=== PATIENT | female | born 1930 | race Caucasian/White ===

== ENCOUNTER 2017-06-26 19:33 | Inpatient (IN) | payer MEDICARE, OTHER ==
[~2017-06-26] VITALS: Ht 167.6 cm; Wt 72.7 kg
[2017-06-26 19:43] VITALS: Ht 167.6 cm; Wt 72.7 kg
--- NOTE | 2017-06-26 19:44 | ERD ---
ER Documentation Chief Complaint Chief Complaint Dislodgment of the G-tube , failure to thrive HPI The patient is an 86-year-old female, presenting to the ER because of this last 1 of the G-tube of unknown time, failure to thrive. 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 Medications Home Meds Reported Medications Rivaroxaban* (Xarelto*) 10 Mg Tablet, 10 MG PO QAM, TAB 06/26/17 Omeprazole* (Omeprazole*) 20 Mg Capsule.dr, 20 MG PO QAM, #30 CAP 06/26/17 Gabapentin* (Neurontin*) 100 Mg Capsule, 100 MG PO TID, #90 CAP 06/26/17 Magaldrate/Simethicone* (Mag-Al Plus Suspension*) 30 Ml Oral.susp, 30 ML PO Q6H Y for UPSET STOMACH, ML 06/26/17 Mirtazapine* (Mirtazapine*) 7.5 Mg Tablet, 7.5 MG PO HS, TAB 06/26/17 Magnesium Hydroxide* (Milk Of Magnesia*) 400 Mg/5 Ml Oral.susp, 30 ML PO QHS, ML 06/26/17 Magnesium Oxide* (Magnesium Oxide*) 400 Mg Tablet, 400 MG PO QHS, TAB 06/26/17 Lisinopril* (Lisinopril*) 5 Mg Tablet, 5 MG PO DAILY, #30 TAB HOLD FOR SBP<110 06/26/17 Levothyroxine Sodium* (Levothyroxine Sodium*) 50 Mcg Tablet, 50 MCG PO BEFORE BREAKFAST, #30 TAB 06/26/17 Folic Acid* (Folic Acid*) 1 Mg Tablet, 1 MG PO DAILY, TAB 06/26/17 Docusate Sodium* (Docusate Sodium*) 100 Mg Capsule, 100 MG PO DAILY, #30 CAP 06/26/17 Divalproex Sodium* (Depakote*) 250 Mg Tablet.dr, 250 MG PO TID, TAB 06/26/17 Cyanocobalamin* (Vitamin B-12*) 1,000 Mcg Tablet.sa, 1000 MCG PO DAILY, TAB 06/26/17 Lorazepam* (Ativan* Intensol) 2 Mg/Ml Soln, 1 MG PO Q6H, #1 BOTTLE 06/26/17 Lorazepam* (Ativan* Intensol) 2 Mg/Ml Soln, 0.5 MG PO Q6H Y for ANXIETY, #1 BOTTLE 06/26/17 Acetaminophen* (Acetaminophen*) 325 Mg Tablet, 650 MG PO Q6H Y for MILD PAIN LEVEL 1-3, #30 TAB 06/26/17 Allergies Allergies: Coded Allergies: ampicillin (Verified Allergy, Unknown, 06/26/17) meropenem (Verified Allergy, Unknown, 06/26/17) Physical Exam Vitals Vital Signs Date Time Temp Pulse Resp B/P Pulse Ox O2 Delivery O2 Flow Rate FiO2 06/26/17 19:43 99.2 100 18 132/61 100 Physical Exam Const: No acute distress.Dehydrated Head: Atraumatic. Eyes: Normal Conjunctiva. ENT: Normal External Ears, Nose and Mouth. Neck: Full range of motion. No meningismus. Resp: Clear to auscultation bilaterally. Cardio: Regular Tachycardic Abd: Soft, non distended, normal bowel sounds, non tender.The stoma has already been closed Skin: No petechiae or rashes. Back: No midline or flank tenderness. Ext: No cyanosis, or edema. Neur: Limited due to her condition Psych: Unable to perform due to her condition Result Diagram: 06/26/17200406/26/172004 Results 24 hrs Laboratory Tests Test 06/26/17 20:05 06/26/17 20:30 White Blood Count 7.010^3/ul Red Blood Count 4.5410^6/ul Hemoglobin 13.8g/dl Hematocrit 43.9% Mean Corpuscular Volume 96.7fl Mean Corpuscular Hemoglobin 30.4pg Mean Corpuscular Hemoglobin Concent 31.4g/dl Red Cell Distribution Width 12.8% Platelet Count 58103^3/UL Mean Platelet Volume 9.9fl Neutrophils % 67.8% Lymphocytes % 27.5% Monocytes % 4.0% Eosinophils % 0.3% Basophils % 0.3% Nucleated Red Blood Cells % 0.0/100WBC Neutrophils # 4.710^3/ul Lymphocytes # 1.910^3/ul Monocytes # 0.310^3/ul Eosinophils # 0.010^3/ul Basophils # 0.010^3/ul Nucleated Red Blood Cells # 0.010^3/ul Prothrombin Time 13.5Sec Prothrombin Time Ratio 1.1 INR International Normalized Ratio 1.03 Activated Partial Thromboplast Time 28.6Sec Sodium Level 155mmol/L Potassium Level 4.2mmol/L Chloride Level 115mmol/L Carbon Dioxide Level 28mmol/L Anion Gap 16 Blood Urea Nitrogen 33mg/dl Creatinine 0.79mg/dl Glucose Level 133mg/dl Lactic Acid Level 1.9mmol/L Calcium Level 10.6mg/dl Total Bilirubin 0.2mg/dl Direct Bilirubin 0.00mg/dl Indirect Bilirubin 0.2mg/dl Aspartate Amino Transf (AST/SGOT) 20IU/L Alanine Aminotransferase (ALT/SGPT) 23IU/L Alkaline Phosphatase 97IU/L Total Protein 7.3g/dl Albumin 3.7g/dl Globulin 3.60g/dl Albumin/Globulin Ratio 1.02 Urine Color ARYA Urine Clarity SLIGHTLY CLOUDY Urine pH 5.0 Urine Specific [place] 1.029 Urine Ketones 2+mg/dL Urine Nitrite NEGATIVEmg/dL Urine Bilirubin 1+mg/dL Urine Urobilinogen 2+mg/dL Urine Leukocyte Esterase 2+Delta/ul Urine Microscopic RBC 6/HPF Urine Microscopic WBC 178/HPF Urine Squamous Epithelial Cells FEW/HPF Urine Bacteria FEW/HPF Urine Mucus MANY/HPF Urine Hemoglobin NEGATIVEmg/dL Urine Glucose NEGATIVEmg/dL Urine Total Protein 1+mg/dl Current Medications Medications (Trade) Dose Ordered Sig/Maria M Route PRN Reason Start Time Stop Time Status Last Admin Dose Admin Lorazepam 0.5 mg 0.5 mg ONCE ONCE IV 06/26/17 20:30 06/26/17 20:31 DC 06/26/17 20:43 Sodium Chloride 2,170 ml @ 2,170 mls/hr BOLUS X1 ONCE IV 06/26/17 21:30 06/26/17 22:29 DC 06/26/17 21:46 Vancomycin HCl 250 ml @ 125 mls/hr ONCE IVPB 06/26/17 21:30 06/26/17 23:29 06/26/17 22:18 Cefepime HCl (Maxipime 1gm/50 ml (Pmx)) 50 ml @ 100 mls/hr ONCE ONCE IVPB 06/26/17 21:30 06/26/17 21:59 DC 06/26/17 21:46 Procedures/MDM [place] [id number] [place] [id number] Radiology Main Line: [phone] DIAGNOSTIC IMAGING REPORT Patient: GLADYS CARBAJAL : 1930 Age: 86 Sex: F MR #: [id number] DOS: 06/26/171953 Ordering MD: HOLLIS PAULSON MD Location: E/R Room/Bed: PROCEDURE: XR Chest. CLINICAL INDICATION: Sepsis. TECHNIQUE: Single frontal view. COMPARISON: None. FINDINGS: There is mild air space disease at the left lung base medially consistent with pneumonia. The lungs are otherwise clear. The heart is mildly enlarged. There is calcification in the aorta consistent with atherosclerosis. There is no pleural effusion. There is no pneumothorax. IMPRESSION: 1. Mild left basilar pneumonia. 2. Cardiomegaly. 3. Atherosclerosis. 4. Otherwise unremarkable chest radiograph. RPTAT: QQ .Ton Dawkins MD, MD Date Time Electronically viewed and signed by .Ton Dawkins MD, MD on 06/26/2017 21:21 .R/ CC: HOLLIS PAULSON MD MEDICAL MAKING DECISION: The patient is a 86-year-old female, presenting with acute displacement of the G-tube, acute pneumonia, acute dehydration, acute hyponatremia, acute cystitis. She was treated with Ativan 0.5 mg IV 2, normosaline 30 mL/kg IV, vancomycin IV, cefepime IV for acute pneumonia for acute agitation with good response The differential diagnoses considered include but are not limited to cholelithiasis, cholecystitis, cystitis, pancreatitis, hepatitis, gastritis, peptic ulcer disease, gastric ulcer, appendicitis, diverticulitis, cholangitis, choledocholithiasis, partial small bowel obstruction. Departure Diagnosis: Primary Impression: Pneumonia Additional Impressions: Dehydration Hypernatremia UTI (urinary tract infection) Dislodged gastrostomy tube Condition: Stable Comments I discussed the findings with the patient. I discussed the patient with her physician Dr. Holt who was made aware of the lab, the treatment, the patient condition. She has treated with the patient to Dr. Barros. I discussed the patient with his physician Dr. Barros who was made aware of the lab, the treatment, the patient condition. The patient is admitted to [facility] Disclaimer: Inadvertent spelling and grammatical errors are likely due to EHR/ dictation software use and do not reflect on the overall quality of patient care. Also, please note that the electronic time recorded on this note does not necessarily reflect the actual time of the patient encounter. HOLLIS PAULSON MD Jun 26, 2017 19:44
--- NOTE | 2017-06-26 19:44 | ERD ---
ER Documentation Chief Complaint Chief Complaint Dislodgment of the G-tube , failure to thrive HPI The patient is an 86-year-old female, presenting to the ER because of this last 1 of the G-tube of unknown time, failure to thrive. 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 Medications Home Meds Reported Medications Rivaroxaban* (Xarelto*) 10 Mg Tablet, 10 MG PO QAM, TAB 06/26/17 Omeprazole* (Omeprazole*) 20 Mg Capsule.dr, 20 MG PO QAM, #30 CAP 06/26/17 Gabapentin* (Neurontin*) 100 Mg Capsule, 100 MG PO TID, #90 CAP 06/26/17 Magaldrate/Simethicone* (Mag-Al Plus Suspension*) 30 Ml Oral.susp, 30 ML PO Q6H Y for UPSET STOMACH, ML 06/26/17 Mirtazapine* (Mirtazapine*) 7.5 Mg Tablet, 7.5 MG PO HS, TAB 06/26/17 Magnesium Hydroxide* (Milk Of Magnesia*) 400 Mg/5 Ml Oral.susp, 30 ML PO QHS, ML 06/26/17 Magnesium Oxide* (Magnesium Oxide*) 400 Mg Tablet, 400 MG PO QHS, TAB 06/26/17 Lisinopril* (Lisinopril*) 5 Mg Tablet, 5 MG PO DAILY, #30 TAB HOLD FOR SBP<110 06/26/17 Levothyroxine Sodium* (Levothyroxine Sodium*) 50 Mcg Tablet, 50 MCG PO BEFORE BREAKFAST, #30 TAB 06/26/17 Folic Acid* (Folic Acid*) 1 Mg Tablet, 1 MG PO DAILY, TAB 06/26/17 Docusate Sodium* (Docusate Sodium*) 100 Mg Capsule, 100 MG PO DAILY, #30 CAP 06/26/17 Divalproex Sodium* (Depakote*) 250 Mg Tablet.dr, 250 MG PO TID, TAB 06/26/17 Cyanocobalamin* (Vitamin B-12*) 1,000 Mcg Tablet.sa, 1000 MCG PO DAILY, TAB 06/26/17 Lorazepam* (Ativan* Intensol) 2 Mg/Ml Soln, 1 MG PO Q6H, #1 BOTTLE 06/26/17 Lorazepam* (Ativan* Intensol) 2 Mg/Ml Soln, 0.5 MG PO Q6H Y for ANXIETY, #1 BOTTLE 06/26/17 Acetaminophen* (Acetaminophen*) 325 Mg Tablet, 650 MG PO Q6H Y for MILD PAIN LEVEL 1-3, #30 TAB 06/26/17 Allergies Allergies: Coded Allergies: ampicillin (Verified Allergy, Unknown, 06/26/17) meropenem (Verified Allergy, Unknown, 06/26/17) Physical Exam Vitals Vital Signs Date Time Temp Pulse Resp B/P Pulse Ox O2 Delivery O2 Flow Rate FiO2 06/26/17 19:43 99.2 100 18 132/61 100 Physical Exam Const: No acute distress.Dehydrated Head: Atraumatic. Eyes: Normal Conjunctiva. ENT: Normal External Ears, Nose and Mouth. Neck: Full range of motion. No meningismus. Resp: Clear to auscultation bilaterally. Cardio: Regular Tachycardic Abd: Soft, non distended, normal bowel sounds, non tender.The stoma has already been closed Skin: No petechiae or rashes. Back: No midline or flank tenderness. Ext: No cyanosis, or edema. Neur: Limited due to her condition Psych: Unable to perform due to her condition Result Diagram: 06/26/17200406/26/172004 Results 24 hrs Laboratory Tests Test 06/26/17 20:05 06/26/17 20:30 White Blood Count 7.010^3/ul Red Blood Count 4.5410^6/ul Hemoglobin 13.8g/dl Hematocrit 43.9% Mean Corpuscular Volume 96.7fl Mean Corpuscular Hemoglobin 30.4pg Mean Corpuscular Hemoglobin Concent 31.4g/dl Red Cell Distribution Width 12.8% Platelet Count 33585^3/UL Mean Platelet Volume 9.9fl Neutrophils % 67.8% Lymphocytes % 27.5% Monocytes % 4.0% Eosinophils % 0.3% Basophils % 0.3% Nucleated Red Blood Cells % 0.0/100WBC Neutrophils # 4.710^3/ul Lymphocytes # 1.910^3/ul Monocytes # 0.310^3/ul Eosinophils # 0.010^3/ul Basophils # 0.010^3/ul Nucleated Red Blood Cells # 0.010^3/ul Prothrombin Time 13.5Sec Prothrombin Time Ratio 1.1 INR International Normalized Ratio 1.03 Activated Partial Thromboplast Time 28.6Sec Sodium Level 155mmol/L Potassium Level 4.2mmol/L Chloride Level 115mmol/L Carbon Dioxide Level 28mmol/L Anion Gap 16 Blood Urea Nitrogen 33mg/dl Creatinine 0.79mg/dl Glucose Level 133mg/dl Lactic Acid Level 1.9mmol/L Calcium Level 10.6mg/dl Total Bilirubin 0.2mg/dl Direct Bilirubin 0.00mg/dl Indirect Bilirubin 0.2mg/dl Aspartate Amino Transf (AST/SGOT) 20IU/L Alanine Aminotransferase (ALT/SGPT) 23IU/L Alkaline Phosphatase 97IU/L Total Protein 7.3g/dl Albumin 3.7g/dl Globulin 3.60g/dl Albumin/Globulin Ratio 1.02 Urine Color ARYA Urine Clarity SLIGHTLY CLOUDY Urine pH 5.0 Urine Specific [place] 1.029 Urine Ketones 2+mg/dL Urine Nitrite NEGATIVEmg/dL Urine Bilirubin 1+mg/dL Urine Urobilinogen 2+mg/dL Urine Leukocyte Esterase 2+Delta/ul Urine Microscopic RBC 6/HPF Urine Microscopic WBC 178/HPF Urine Squamous Epithelial Cells FEW/HPF Urine Bacteria FEW/HPF Urine Mucus MANY/HPF Urine Hemoglobin NEGATIVEmg/dL Urine Glucose NEGATIVEmg/dL Urine Total Protein 1+mg/dl Current Medications Medications (Trade) Dose Ordered Sig/Maria M Route PRN Reason Start Time Stop Time Status Last Admin Dose Admin Lorazepam 0.5 mg 0.5 mg ONCE ONCE IV 06/26/17 20:30 06/26/17 20:31 DC 06/26/17 20:43 Sodium Chloride 2,170 ml @ 2,170 mls/hr BOLUS X1 ONCE IV 06/26/17 21:30 06/26/17 22:29 DC 06/26/17 21:46 Vancomycin HCl 250 ml @ 125 mls/hr ONCE IVPB 06/26/17 21:30 06/26/17 23:29 06/26/17 22:18 Cefepime HCl (Maxipime 1gm/50 ml (Pmx)) 50 ml @ 100 mls/hr ONCE ONCE IVPB 06/26/17 21:30 06/26/17 21:59 DC 06/26/17 21:46 Procedures/MDM [place] [id number] [place] [id number] Radiology Main Line: [phone] DIAGNOSTIC IMAGING REPORT Patient: GLADYS CARBAJAL : 1930 Age: 86 Sex: F MR #: [id number] DOS: 06/26/171953 Ordering MD: HOLLIS PAULSON MD Location: E/R Room/Bed: PROCEDURE: XR Chest. CLINICAL INDICATION: Sepsis. TECHNIQUE: Single frontal view. COMPARISON: None. FINDINGS: There is mild air space disease at the left lung base medially consistent with pneumonia. The lungs are otherwise clear. The heart is mildly enlarged. There is calcification in the aorta consistent with atherosclerosis. There is no pleural effusion. There is no pneumothorax. IMPRESSION: 1. Mild left basilar pneumonia. 2. Cardiomegaly. 3. Atherosclerosis. 4. Otherwise unremarkable chest radiograph. RPTAT: QQ .Ton Dawkins MD, MD Date Time Electronically viewed and signed by .Ton Dawkins MD, MD on 06/26/2017 21:21 .R/ CC: HOLLIS APULSON MD MEDICAL MAKING DECISION: The patient is a 86-year-old female, presenting with acute displacement of the G-tube, acute pneumonia, acute dehydration, acute hyponatremia, acute cystitis. She was treated with Ativan 0.5 mg IV 2, normosaline 30 mL/kg IV, vancomycin IV, cefepime IV for acute pneumonia for acute agitation with good response The differential diagnoses considered include but are not limited to cholelithiasis, cholecystitis, cystitis, pancreatitis, hepatitis, gastritis, peptic ulcer disease, gastric ulcer, appendicitis, diverticulitis, cholangitis, choledocholithiasis, partial small bowel obstruction. Departure Diagnosis: Primary Impression: Pneumonia Additional Impressions: Dehydration Hypernatremia UTI (urinary tract infection) Dislodged gastrostomy tube Condition: Stable Comments I discussed the findings with the patient. I discussed the patient with her physician Dr. Holt who was made aware of the lab, the treatment, the patient condition. She has treated with the patient to Dr. Barros. I discussed the patient with his physician Dr. Barros who was made aware of the lab, the treatment, the patient condition. The patient is admitted to [facility] Disclaimer: Inadvertent spelling and grammatical errors are likely due to EHR/ dictation software use and do not reflect on the overall quality of patient care. Also, please note that the electronic time recorded on this note does not necessarily reflect the actual time of the patient encounter. HOLLIS PAULSON MD Jun 26, 2017 19:44
[2017-06-26] MEDS ORDERED: LORAZEPAM 2 MG INJ IV ONE ×2 (20:30→22:00)
[2017-06-26] MEDS ORDERED: ACET325T45 PO (20:41)
[2017-06-26] MEDS ORDERED: CYAN100080 PO (20:43)
[2017-06-26] MEDS ORDERED: ATILIQ PO (20:43)
[2017-06-26] MEDS ORDERED: DIVA250T60 PO (20:44)
[2017-06-26] MEDS ORDERED: DOCU-159 PO (20:44)
[2017-06-26] MEDS ORDERED: FOLI-49 PO (20:45)
[2017-06-26] MEDS ORDERED: LEVO50TA74 PO (20:45)
[2017-06-26] MEDS ORDERED: MAGN400T28 PO (20:46)
[2017-06-26] MEDS ORDERED: LISI-313 PO (20:46)
[2017-06-26] MEDS ORDERED: MAGN400O4 PO (20:47)
[2017-06-26] MEDS ORDERED: MIRT7.5T8 PO (20:47)
[2017-06-26] MEDS ORDERED: GABA100C PO (20:49)
[2017-06-26] MEDS ORDERED: UDMYL PO (20:49)
[2017-06-26] MEDS ORDERED: OMEP20CA16 PO (20:50)
[2017-06-26] MEDS ORDERED: RIVA10TA PO (20:51)
--- NOTE | 2017-06-26 21:21 | RADRPT ---
PROCEDURE: XR Chest. CLINICAL INDICATION: Sepsis. TECHNIQUE: Single frontal view. COMPARISON: None. FINDINGS: There is mild air space disease at the left lung base medially consistent with pneumonia. The lungs are otherwise clear. The heart is mildly enlarged. There is calcification in the aorta consistent with atherosclerosis. There is no pleural effusion. There is no pneumothorax. IMPRESSION: 1. Mild left basilar pneumonia. 2. Cardiomegaly. 3. Atherosclerosis. 4. Otherwise unremarkable chest radiograph. RPTAT: QQ .Ton Dawkins MD, MD Date Time Electronically viewed and signed by .Ton Dawkins MD, MD on 06/26/2017 21:21 .R/
[2017-06-26] MEDS ORDERED: CEFEPIME 1GM/50 ML (PMX) 50 ML IVPB ONE (21:30)
[2017-06-26] MEDS ORDERED: VANCOMYCIN 1 GM (PMX) 250 ML IVPB SCH (21:30)
[2017-06-26] MEDS ORDERED: SOD CHLORIDE 0.9% 2,170 ML IV ONE (21:30)
[2017-06-26 22:26] VITALS: TEMP 98
--- NOTE | 2017-06-26 22:58 | CONS ---
Date/Time of Note Date/Time of Note DATE: 06/26/17 TIME: 22:58 Consultation Date/Type/Reason Admit Date/Time Social History Smoking Status: Never smoker Exam/Review of Systems Vital Signs Vitals Vital Signs Date Time Temp Pulse Resp B/P Pulse Ox O2 Delivery O2 Flow Rate FiO2 06/26/17 22:29 Nasal Cannula 2 06/26/17 22:26 98.0 93 16 122/60 97 Results Result Diagram: 06/26/17200406/26/172004 Results 24 hrs Laboratory Tests Test 06/26/17 20:05 06/26/17 20:30 06/26/17 21:58 White Blood Count 7.0 Red Blood Count 4.54 Hemoglobin 13.8 Hematocrit 43.9 Mean Corpuscular Volume 96.7 Mean Corpuscular Hemoglobin 30.4 Mean Corpuscular Hemoglobin Concent 31.4 L Red Cell Distribution Width 12.8 Platelet Count 233 Mean Platelet Volume 9.9 Neutrophils % 67.8 Lymphocytes % 27.5 Monocytes % 4.0 Eosinophils % 0.3 Basophils % 0.3 Nucleated Red Blood Cells % 0.0 Neutrophils # 4.7 Lymphocytes # 1.9 Monocytes # 0.3 Eosinophils # 0.0 Basophils # 0.0 Nucleated Red Blood Cells # 0.0 Prothrombin Time 13.5 Prothrombin Time Ratio 1.1 INR International Normalized Ratio 1.03 Activated Partial Thromboplast Time 28.6 Sodium Level 155 H Potassium Level 4.2 Chloride Level 115 H Carbon Dioxide Level 28 Anion Gap 16 Blood Urea Nitrogen 33 H Creatinine 0.79 Glucose Level 133 Lactic Acid Level 1.9 1.7 Calcium Level 10.6 H Total Bilirubin 0.2 Direct Bilirubin 0.00 Indirect Bilirubin 0.2 Aspartate Amino Transf (AST/SGOT) 20 Alanine Aminotransferase (ALT/SGPT) 23 Alkaline Phosphatase 97 Total Protein 7.3 Albumin 3.7 Globulin 3.60 H Albumin/Globulin Ratio 1.02 Urine Color ARYA Urine Clarity SLIGHTLY CLOUDY A Urine pH 5.0 Urine Specific [place] 1.029 Urine Ketones 2+ H Urine Nitrite NEGATIVE Urine Bilirubin 1+ H Urine Urobilinogen 2+ H Urine Leukocyte Esterase 2+ H Urine Microscopic RBC 6 H Urine Microscopic WBC 178 H Urine Squamous Epithelial Cells FEW Urine Bacteria FEW A Urine Mucus MANY A Urine Hemoglobin NEGATIVE Urine Glucose NEGATIVE Urine Total Protein 1+ H Medications Medications Current Medications Vancomycin HCl (Vancocin) 250 ml @ 125 mls/hr ONCE IVPB Last administered on 06/26/17t 22:18; Admin Dose 125 MLS/HR; Start 06/26/17 at 21:30; Stop 06/26/17 at 23:29 TOYA BUCK MD Jun 26, 2017 22:58
[2017-06-27] MEDS ORDERED: LORAZEPAM (2 MG/ML PO SYG) PO PRN (00:30)
[2017-06-27] MEDS ORDERED: ONDANSETRON 4 MG INJ IV PRN (00:30)
[2017-06-27] MEDS ORDERED: SOD CHLORIDE 0.45% 1,000 ML IV SCH (00:30)
[2017-06-27] MEDS ORDERED: ACETAMINOPHEN 325 MG TAB PO PRN (00:30)
[2017-06-27] MEDS ORDERED: AL HYDROX/MG HYDROX/SIMETH 30 ML CUP PO PRN (00:30)
[2017-06-27] MEDS ORDERED: ZOLPIDEM 5 MG TAB PO PRN (00:30)
[2017-06-27] MEDS ORDERED: VANCOMYCIN IV PER PHARMACY XX SCH (00:30)
[2017-06-27] MEDS ORDERED: NACL 0.9% 3 ML SYG IV SCH (00:30)
[2017-06-27] MEDS ORDERED: LORAZEPAM (2 MG/ML PO SYG) PO SCH (00:30)
[2017-06-27] MEDS ORDERED: LORAZEPAM 0.5 MG TAB PO PRN (01:13)
[2017-06-27] MEDS: LORAZEPAM 1 MG TAB PO SCH ×4 (01:14→19:14)
[2017-06-27] MEDS: LORAZEPAM 2 MG INJ IV PRN (01:27)
[2017-06-27 02:35] VITALS: BP 146/67; RESP 20
[2017-06-27] MEDS: morphine 2 MG INJ IV PRN ×3 (05:19→22:44)
[2017-06-27] MEDS: LEVOTHYROXINE 50 MCG TAB PO SCH (07:00)
[2017-06-27 08:00] VITALS: BP 156/70; RESP 20
[2017-06-27] MEDS: CYANOCOBALAMIN 500 MCG TAB PO SCH (09:00)
[2017-06-27] MEDS ORDERED: ENOXAPARIN 40 MG/0.4 ML SYG SC SCH (09:00)
[2017-06-27] MEDS: FOLIC ACID 1 MG TAB PO SCH (09:00)
[2017-06-27] MEDS: DOCUSATE SODIUM 100 MG CAP PO SCH (09:00)
[2017-06-27] MEDS ORDERED: DEXTROSE 5%-0.45% NACL 1,000 ML IV SCH (09:00)
[2017-06-27] MEDS: DIVALPROEX (EC) 250 MG TAB PO SCH ×3 (09:00→21:00)
[2017-06-27] MEDS: LISINOPRIL 5 MG TAB PO SCH (09:00)
[2017-06-27] MEDS: GABAPENTIN 100 MG CAP PO SCH ×3 (09:00→20:19)
[2017-06-27] MEDS: CEFEPIME 1GM/50 ML (PMX) 50 ML IVPB SCH ×2 (09:22→21:11)
[2017-06-27] MEDS: ENOXAPARIN 30 MG/0.3 ML SYG SC SCH (09:22)
[2017-06-27] MEDS: PANTOPRAZOLE 40 MG INJ IV SCH (09:23)
--- NOTE | 2017-06-27 11:02 | HP ---
DATE OF ADMISSION: 06/26/2017 CHIEF COMPLAINT: Dislodged G-tube. HISTORY OF PRESENT ILLNESS: This is an 86-year-old female with a past medical history of dementia, history of dysphagia, status post PEG, history of hypertension, hypothyroidism who presents to [facility] from a shelter facility due to dislodgement of G-tube and failure to thrive. The patient is a poor historian, unable to provide any history. History was obtained by [facility], speaking to hospital staff. The patient apparently had dislodgement of th e G-tube for an unknown period of time. The patient was noted to have decreased oral intake. As a result was brought to [facility]. Upon arrival, the patient had a chest x-ray [facility] showed findings of mild left basilar pneumonia. The patient also had a urinalysis which shows py uria. The patient had laboratory data drawn also showed a sodium of 155. The patient was given IV fluids, IV antibiotics and admitted to med/surg for evaluation. Upon my evaluation of the patient at this time, she is currently confused, unable to provide history . There have been no reports of hemoptysis, hematemesis or hematochezia. PAST MEDICAL HISTORY: As stated above, history of dementia, history of hypertension, history of hyp othyroidism. ALLERGIES: UNKNOWN. FAMILY HISTORY: Noncontributory. SOCIAL HISTORY: Lives at a skilled nurse facility. MEDICATIONS: The patient's medications have been reviewed and reconciled. REVIEW OF SYSTEMS: Unable to do adequate review of systems as the patient is altered. Pertinent po sitives obtained by reviewing medical records, speaking to hospital staff, stated in HPI, otherwise negative. PHYSICAL EXAMINATION: VITAL SIGNS: Blood pressure is 130/61, respiration 18, pulse 98, temperature 98.2. HEENT: Head is normocephalic. Pupils are reactive to light. NECK: Supple. HEART: Regular rate. LUNGS: Show diminished breath sounds at the base. ABDOMEN: Soft, nontender to palpation. No rebound or guarding. EXTREMITIES: Negative for clubbing or cyanosis. No edema. DERMATOLOGIC: No rashes. MUSCULOSKELETAL: No joint effusions. NEUROLOGIC: Limited exam due to lack of patient cooperation. LABORATORY DATA: Shows a white count of 6.2, hemoglobin 10.9, hematocrit 36.1, platelet count 185. Sodium 152, potassium 3.5, BUN 25, creatinine 0.61. Lactic acid within normal limits. Chest x-ray as stated in HPI. ASSESSMENT AND PLAN: This is an 86-year-old female who presents with: 1. Pneumonia, urinary tract infection. Plan is to continue the patient on broad spectrum antibioti cs. We will continue IV hydration. We will place an ID consult for evaluation. 2. Nonoliguric acute kidney injury with unknown baseline creatinine. Etiology secondary to volume depletion and dehydration. Continue gentle IV hydration. 3. Hypernatremia, etiology is likely from losses, continue hypertonic fluids and monitor. 4. Dysphagia status post G-tube dislodgement. We will place a GI consult for evaluation and G-tube placement. 5. Acute encephalopathy on dementia. Etiology is toxic metabolic. Continue to monitor, continue c urrent treatment plan. 6. Hypertension. Continue current medical management. We will resume blood pressure medications o nce the G-tube is placed. 7. Hypothyroidism. Continue Synthroid. 8. Neuropathy. Continue Neurontin. 9. Questionable history of deep venous thrombosis. The patient is on Xarelto. We will continue. 11. Gastrointestinal and deep venous thrombosis prophylaxis. Continue proton pump inhibitor and Xa relto. Dictated By: ANNE CORNEJO/JOHN Conf#: [id number] DID#: [id number]
--- NOTE | 2017-06-27 11:02 | HP ---
DATE OF ADMISSION: 06/26/2017 CHIEF COMPLAINT: Dislodged G-tube. HISTORY OF PRESENT ILLNESS: This is an 86-year-old female with a past medical history of dementia, history of dysphagia, status post PEG, history of hypertension, hypothyroidism who presents to [facility] from a care home facility due to dislodgement of G-tube and failure to thrive. The patient is a poor historian, unable to provide any history. History was obtained by [facility], speaking to hospital staff. The patient apparently had dislodgement of th e G-tube for an unknown period of time. The patient was noted to have decreased oral intake. As a result was brought to [facility]. Upon arrival, the patient had a chest x-ray [facility] showed findings of mild left basilar pneumonia. The patient also had a urinalysis which shows py uria. The patient had laboratory data drawn also showed a sodium of 155. The patient was given IV fluids, IV antibiotics and admitted to med/surg for evaluation. Upon my evaluation of the patient at this time, she is currently confused, unable to provide history . There have been no reports of hemoptysis, hematemesis or hematochezia. PAST MEDICAL HISTORY: As stated above, history of dementia, history of hypertension, history of hyp othyroidism. ALLERGIES: UNKNOWN. FAMILY HISTORY: Noncontributory. SOCIAL HISTORY: Lives at a skilled nurse facility. MEDICATIONS: The patient's medications have been reviewed and reconciled. REVIEW OF SYSTEMS: Unable to do adequate review of systems as the patient is altered. Pertinent po sitives obtained by reviewing medical records, speaking to hospital staff, stated in HPI, otherwise negative. PHYSICAL EXAMINATION: VITAL SIGNS: Blood pressure is 130/61, respiration 18, pulse 98, temperature 98.2. HEENT: Head is normocephalic. Pupils are reactive to light. NECK: Supple. HEART: Regular rate. LUNGS: Show diminished breath sounds at the base. ABDOMEN: Soft, nontender to palpation. No rebound or guarding. EXTREMITIES: Negative for clubbing or cyanosis. No edema. DERMATOLOGIC: No rashes. MUSCULOSKELETAL: No joint effusions. NEUROLOGIC: Limited exam due to lack of patient cooperation. LABORATORY DATA: Shows a white count of 6.2, hemoglobin 10.9, hematocrit 36.1, platelet count 185. Sodium 152, potassium 3.5, BUN 25, creatinine 0.61. Lactic acid within normal limits. Chest x-ray as stated in HPI. ASSESSMENT AND PLAN: This is an 86-year-old female who presents with: 1. Pneumonia, urinary tract infection. Plan is to continue the patient on broad spectrum antibioti cs. We will continue IV hydration. We will place an ID consult for evaluation. 2. Nonoliguric acute kidney injury with unknown baseline creatinine. Etiology secondary to volume depletion and dehydration. Continue gentle IV hydration. 3. Hypernatremia, etiology is likely from losses, continue hypertonic fluids and monitor. 4. Dysphagia status post G-tube dislodgement. We will place a GI consult for evaluation and G-tube placement. 5. Acute encephalopathy on dementia. Etiology is toxic metabolic. Continue to monitor, continue c urrent treatment plan. 6. Hypertension. Continue current medical management. We will resume blood pressure medications o nce the G-tube is placed. 7. Hypothyroidism. Continue Synthroid. 8. Neuropathy. Continue Neurontin. 9. Questionable history of deep venous thrombosis. The patient is on Xarelto. We will continue. 11. Gastrointestinal and deep venous thrombosis prophylaxis. Continue proton pump inhibitor and Xa relto. Dictated By: ANNE CORNEJO/JOHN Conf#: [id number] DID#: [id number]
--- NOTE | 2017-06-27 11:02 | HP ---
DATE OF ADMISSION: 06/26/2017 CHIEF COMPLAINT: Dislodged G-tube. HISTORY OF PRESENT ILLNESS: This is an 86-year-old female with a past medical history of dementia, history of dysphagia, status post PEG, history of hypertension, hypothyroidism who presents to [facility] from a residential facility due to dislodgement of G-tube and failure to thrive. The patient is a poor historian, unable to provide any history. History was obtained by [facility], speaking to hospital staff. The patient apparently had dislodgement of th e G-tube for an unknown period of time. The patient was noted to have decreased oral intake. As a result was brought to [facility]. Upon arrival, the patient had a chest x-ray [facility] showed findings of mild left basilar pneumonia. The patient also had a urinalysis which shows py uria. The patient had laboratory data drawn also showed a sodium of 155. The patient was given IV fluids, IV antibiotics and admitted to med/surg for evaluation. Upon my evaluation of the patient at this time, she is currently confused, unable to provide history . There have been no reports of hemoptysis, hematemesis or hematochezia. PAST MEDICAL HISTORY: As stated above, history of dementia, history of hypertension, history of hyp othyroidism. ALLERGIES: UNKNOWN. FAMILY HISTORY: Noncontributory. SOCIAL HISTORY: Lives at a skilled nurse facility. MEDICATIONS: The patient's medications have been reviewed and reconciled. REVIEW OF SYSTEMS: Unable to do adequate review of systems as the patient is altered. Pertinent po sitives obtained by reviewing medical records, speaking to hospital staff, stated in HPI, otherwise negative. PHYSICAL EXAMINATION: VITAL SIGNS: Blood pressure is 130/61, respiration 18, pulse 98, temperature 98.2. HEENT: Head is normocephalic. Pupils are reactive to light. NECK: Supple. HEART: Regular rate. LUNGS: Show diminished breath sounds at the base. ABDOMEN: Soft, nontender to palpation. No rebound or guarding. EXTREMITIES: Negative for clubbing or cyanosis. No edema. DERMATOLOGIC: No rashes. MUSCULOSKELETAL: No joint effusions. NEUROLOGIC: Limited exam due to lack of patient cooperation. LABORATORY DATA: Shows a white count of 6.2, hemoglobin 10.9, hematocrit 36.1, platelet count 185. Sodium 152, potassium 3.5, BUN 25, creatinine 0.61. Lactic acid within normal limits. Chest x-ray as stated in HPI. ASSESSMENT AND PLAN: This is an 86-year-old female who presents with: 1. Pneumonia, urinary tract infection. Plan is to continue the patient on broad spectrum antibioti cs. We will continue IV hydration. We will place an ID consult for evaluation. 2. Nonoliguric acute kidney injury with unknown baseline creatinine. Etiology secondary to volume depletion and dehydration. Continue gentle IV hydration. 3. Hypernatremia, etiology is likely from losses, continue hypertonic fluids and monitor. 4. Dysphagia status post G-tube dislodgement. We will place a GI consult for evaluation and G-tube placement. 5. Acute encephalopathy on dementia. Etiology is toxic metabolic. Continue to monitor, continue c urrent treatment plan. 6. Hypertension. Continue current medical management. We will resume blood pressure medications o nce the G-tube is placed. 7. Hypothyroidism. Continue Synthroid. 8. Neuropathy. Continue Neurontin. 9. Questionable history of deep venous thrombosis. The patient is on Xarelto. We will continue. 11. Gastrointestinal and deep venous thrombosis prophylaxis. Continue proton pump inhibitor and Xa relto. Dictated By: ANNE CONREJO/JOHN Conf#: [id number] DID#: [id number]
--- NOTE | 2017-06-27 12:34 | CONS ---
DATE OF ADMISSION: 06/26/2017 DATE OF CONSULTATION: 06/27/2017 TYPE OF CONSULTATION: Infectious Disease. REASON FOR CONSULTATION: Antibiotic management. HISTORY OF PRESENT ILLNESS: Patient is an 86-year-old female who comes in with dislodged G-tube and is being seen for antibiotic management. Her past problems include: 1. Senile dementia. 2. Dysphagia, status post G-tube placement. 3. Hypertension. 4. Hypothyroidism. She presents to [facility] with a dislodged G-tube and failure to thri ve. She had decreased oral intake. In the emergency room, chest x-ray showed mild left basilar pne umonia. Urinalysis shows pyuria. She was given IV fluids and admitted to the hospital. PAST MEDICAL HISTORY: Operations as outlined. FAMILY HISTORY: Noncontributory. SOCIAL HISTORY: She lives in a intermediate facility. ALLERGIES: NONE TO PENICILLIN, SULFA OR FOODS. MEDICATIONS: Per chart. REVIEW OF SYSTEMS: Noncontributory. PHYSICAL EXAMINATION: GENERAL: The patient is an elderly ill-appearing female who is awake, responsive, in no acute distr ess. VITAL SIGNS: Stable. She is afebrile. SKIN: Without generalized rash. HEENT: Within normal limits. NECK: Supple. LYMPH NODES: None palpable. CHEST: Decreased breath sounds at the bases. HEART: Without murmur or gallop. ABDOMEN: Soft, nontender. The stoma around the G-tube has already been closed. EXTREMITIES: Without cyanosis, clubbing, or edema. RECTAL AND GENITAL: Deferred. NEUROLOGIC: No focal neurological abnormality. Of note, is the fact that she IS ALLERGIC TO AMPICI LLIN AND MEROPENEM. ANCILLARY LABORATORY DATA: On admission, her white count was 7.0, H and H of 13.8 and 43.9, platele t count 233,000. BUN and creatinine 33/0.79. IMPRESSION: Patient was begun on vancomycin and cefepime. We will continue her on this regimen. Stacey raymond will work her up for pneumonia and urinary tract infection. I will dictate my findings to Dr. Nadege pérez and to Dr. Bashir. As noted, the chest x-ray shows mild left basilar pneumonia and urine is positive for 2+ leukocyte esterase and white cells, so she has both pneumonia and urinary tract inf ection. Dictated By: AVERY RICKETTS MD, JD/JOHN Conf#: [id number] [facility]#: [id number]
--- NOTE | 2017-06-27 12:34 | CONS ---
DATE OF ADMISSION: 06/26/2017 DATE OF CONSULTATION: 06/27/2017 TYPE OF CONSULTATION: Infectious Disease. REASON FOR CONSULTATION: Antibiotic management. HISTORY OF PRESENT ILLNESS: Patient is an 86-year-old female who comes in with dislodged G-tube and is being seen for antibiotic management. Her past problems include: 1. Senile dementia. 2. Dysphagia, status post G-tube placement. 3. Hypertension. 4. Hypothyroidism. She presents to [facility] with a dislodged G-tube and failure to thri ve. She had decreased oral intake. In the emergency room, chest x-ray showed mild left basilar pne umonia. Urinalysis shows pyuria. She was given IV fluids and admitted to the hospital. PAST MEDICAL HISTORY: Operations as outlined. FAMILY HISTORY: Noncontributory. SOCIAL HISTORY: She lives in a detention facility. ALLERGIES: NONE TO PENICILLIN, SULFA OR FOODS. MEDICATIONS: Per chart. REVIEW OF SYSTEMS: Noncontributory. PHYSICAL EXAMINATION: GENERAL: The patient is an elderly ill-appearing female who is awake, responsive, in no acute distr ess. VITAL SIGNS: Stable. She is afebrile. SKIN: Without generalized rash. HEENT: Within normal limits. NECK: Supple. LYMPH NODES: None palpable. CHEST: Decreased breath sounds at the bases. HEART: Without murmur or gallop. ABDOMEN: Soft, nontender. The stoma around the G-tube has already been closed. EXTREMITIES: Without cyanosis, clubbing, or edema. RECTAL AND GENITAL: Deferred. NEUROLOGIC: No focal neurological abnormality. Of note, is the fact that she IS ALLERGIC TO AMPICI LLIN AND MEROPENEM. ANCILLARY LABORATORY DATA: On admission, her white count was 7.0, H and H of 13.8 and 43.9, platele t count 233,000. BUN and creatinine 33/0.79. IMPRESSION: Patient was begun on vancomycin and cefepime. We will continue her on this regimen. Stacey raymond will work her up for pneumonia and urinary tract infection. I will dictate my findings to Dr. Nadege pérez and to Dr. Bashir. As noted, the chest x-ray shows mild left basilar pneumonia and urine is positive for 2+ leukocyte esterase and white cells, so she has both pneumonia and urinary tract inf ection. Dictated By: AVERY RICKETTS MD, JD/JOHN Conf#: [id number] [facility]#: [id number]
[2017-06-27] MEDS: POTASSIUM CHLORIDE 30 MEQ in DEXTROSE 5% 1,000 ML IV SCH (17:47)
[2017-06-27] MEDS: VANCOMYCIN 1 GM in NS 250 ML IVPB SCH (18:02)
--- NOTE | 2017-06-27 19:03 | CONS ---
Date/Time of Note Date/Time of Note DATE: 06/27/17 TIME: 19:03 Assessment/Plan Assessment/Plan Chief Complaint/Hosp Course ASSESSMENT AND PLAN: This is an 86-year-old female who presents with: Hypercoagulable state with hx deep venous thrombosis. The patient is on Xarelto. \ We will continue. 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 Nonoliguric acute kidney injury Hypernatremia, Dysphagia status post G-tube in the past, now needs new one Acute encephalopathy on dementia. Etiology is toxic metabolic. Hypertension. Hypothyroidism. Continue Synthroid. Neuropathy. Continue Neurontin. Gastrointestinal and deep venous thrombosis prophylaxis. Continue proton pump inhibitor and Xarelto. Problems: Consultation Date/Type/Reason Admit Date/Time Jun 26, 2017 at 21:46 Initial Consult Date 06.26.17 Type of Consultation: HEMEON Reason for Consultation HYPERCOAGULABLE STATE ANEMIA Referring Provider: ANNE BERRIOS DO 24 HR Interval Summary Free Text/Dictation ALL NOTED POST GT PLACEMENT NO BLEEDING H/H DROP NOTED ON XARELTO Exam/Review of Systems Vital Signs Vitals Vital Signs Date Time Temp Pulse Resp B/P Pulse Ox O2 Delivery O2 Flow Rate FiO2 06/27/17 08:00 97.8 88 20 156/70 94 06/27/17 08:00 Nasal Cannula 2.0 Intake and Output 06/26/17 06/26/17 06/27/17 15:00 23:00 07:00 Intake Total 550 ml Balance 550 ml Exam HEENT: Head is normocephalic. NECK: Supple. HEART: Regular rate. LUNGS: Show diminished breath sounds at the base. ABDOMEN: Nontender to palpation. No rebound or guarding. EXTREMITIES: Negative for clubbing, cyanosis, no edema. DERMATOLOGIC: No rashes. MUSCULOSKELETAL: No joint effusions. NEUROLOGIC: No change in exam. Results Result Diagram: 06/27/17 0543 06/27/17 0543 Results 24 hrs Laboratory Tests Test 06/26/17 20:05 06/26/17 20:30 06/26/17 21:58 06/27/17 01:19 White Blood Count 7.0 Red Blood Count 4.54 Hemoglobin 13.8 Hematocrit 43.9 Mean Corpuscular Volume 96.7 Mean Corpuscular Hemoglobin 30.4 Mean Corpuscular Hemoglobin Concent 31.4 L Red Cell Distribution Width 12.8 Platelet Count 233 Mean Platelet Volume 9.9 Neutrophils % 67.8 Lymphocytes % 27.5 Monocytes % 4.0 Eosinophils % 0.3 Basophils % 0.3 Nucleated Red Blood Cells % 0.0 Neutrophils # 4.7 Lymphocytes # 1.9 Monocytes # 0.3 Eosinophils # 0.0 Basophils # 0.0 Nucleated Red Blood Cells # 0.0 Prothrombin Time 13.5 Prothrombin Time Ratio 1.1 INR International Normalized Ratio 1.03 Activated Partial Thromboplast Time 28.6 Sodium Level 155 H Potassium Level 4.2 Chloride Level 115 H Carbon Dioxide Level 28 Anion Gap 16 Blood Urea Nitrogen 33 H Creatinine 0.79 Glucose Level 133 Lactic Acid Level 1.9 1.7 1.0 Calcium Level 10.6 H Total Bilirubin 0.2 Direct Bilirubin 0.00 Indirect Bilirubin 0.2 Aspartate Amino Transf (AST/SGOT) 20 Alanine Aminotransferase (ALT/SGPT) 23 Alkaline Phosphatase 97 Total Protein 7.3 Albumin 3.7 Globulin 3.60 H Albumin/Globulin Ratio 1.02 Urine Color ARYA Urine Clarity SLIGHTLY CLOUDY A Urine pH 5.0 Urine Specific [place] 1.029 Urine Ketones 2+ H Urine Nitrite NEGATIVE Urine Bilirubin 1+ H Urine Urobilinogen 2+ H Urine Leukocyte Esterase 2+ H Urine Microscopic RBC 6 H Urine Microscopic WBC 178 H Urine Squamous Epithelial Cells FEW Urine Bacteria FEW A Urine Mucus MANY A Urine Hemoglobin NEGATIVE Urine Glucose NEGATIVE Urine Total Protein 1+ H Test 06/27/17 05:43 White Blood Count 6.2 Red Blood Count 3.69 L Hemoglobin 10.9 #L Hematocrit 36.1 L Mean Corpuscular Volume 97.8 Mean Corpuscular Hemoglobin 29.5 Mean Corpuscular Hemoglobin Concent 30.2 L Red Cell Distribution Width 12.9 Platelet Count 185 # Mean Platelet Volume 10.2 Neutrophils % 59.5 Lymphocytes % 32.6 Monocytes % 6.5 Eosinophils % 0.6 Basophils % 0.6 Nucleated Red Blood Cells % 0.0 Neutrophils # 3.7 Lymphocytes # 2.0 Monocytes # 0.4 Eosinophils # 0.0 Basophils # 0.0 Nucleated Red Blood Cells # 0.0 Sodium Level 152 H Potassium Level 3.5 Chloride Level 121 H Carbon Dioxide Level 22 Anion Gap 13 Blood Urea Nitrogen 25 H Creatinine 0.61 Glucose Level 124 Calcium Level 9.0 Total Bilirubin 0.2 Direct Bilirubin 0.00 Indirect Bilirubin 0.2 Aspartate Amino Transf (AST/SGOT) 17 Alanine Aminotransferase (ALT/SGPT) 24 Alkaline Phosphatase 74 Total Protein 5.7 #L Albumin 3.0 L Globulin 2.70 Albumin/Globulin Ratio 1.11 Medications Medications Current Medications Ondansetron HCl (Zofran Inj) 4 mg Q6H PRN IV NAUSEA AND/OR VOMITING; Start 06/27/17 at 00:30 Zolpidem Tartrate (Ambien) 5 mg QHS PRN PO SLEEP; Start 06/27/17 at 00:30 Acetaminophen (Tylenol Tab) 650 mg Q6H PRN PO MILD PAIN LEVEL 1-3; Start at 00:30 Cyanocobalamin (Vitamin B12) 1,000 mcg DAILY PO ; Start 06/27/17 at 09:00 Divalproex Sodium (Depakote) 250 mg TID PO ; Start 06/27/17 at 09:00 Docusate Sodium (Colace) 100 mg DAILY PO ; Start 06/27/17 at 09:00 Folic Acid (Folic Acid) 1 mg DAILY PO ; Start 06/27/17 at 09:00 Gabapentin (Neurontin) 100 mg TID PO ; Start 06/27/17 at 09:00 Lisinopril (Zestril) 5 mg DAILY PO ; Start 06/27/17 at 09:00 Al Hydrox/Mg Hydrox/Simethicone (Mag-Al Plus) 30 ml Q6H PRN PO UPSET STOMACH; Start 06/27/17 at 00:30 Magnesium Hydroxide (Milk Of Mag) 30 ml QHS PO ; Start 06/27/17 at 21:00 Magnesium Oxide (Mag-Ox 400) 400 mg QHS PO ; Start 06/27/17 at 21:00 Mirtazapine (Remeron) 7.5 mg HS PO ; Start 06/27/17 at 21:00 Rivaroxaban 10 mg 10 mg QAM PO ; Start 06/27/17 at 09:00; Status Future Hold Cefepime HCl 50 ml @ 100 mls/hr Q12 IVPB Last administered on 06/27/17t 09:22 ; Admin Dose 100 MLS/HR; Start 06/27/17 at 09:00 Vancomycin HCl (Vancocin) 250 ml @ 125 mls/hr Q24H IVPB Last administered on 06/27/17 18:02; Admin Dose 125 MLS/HR; Start 06/27/17 at 18:00 Lorazepam (Ativan) 0.5 mg Q6H PRN IV anxiety Last administered on 06/27/17 01: 27; Admin Dose 0.5 MG; Start 06/27/17 at 01:30 Lorazepam (Ativan) 0.5 mg Q6H PRN PO ANXIETY; Start 06/27/17 at 01:13 Lorazepam (Ativan) 1 mg Q6H PO ; Start 06/27/17 at 01:14 Influenza Virus Vaccine (Fluzone) 0.5 ml ONCE ONCE IM* ; Start 06/29/17 at 09:00 ; Stop 06/29/17 at 09:01 Morphine Sulfate (morphine) 2 mg Q6H PRN IV severe pain Last administered on 12:54; Admin Dose 2 MG; Start 06/27/17 at 05:30 Pantoprazole (Protonix Iv) 40 mg DAILY@06 IV Last administered on 06/27/17 09: 23; Admin Dose 40 MG; Start 06/27/17 at 10:00 Enoxaparin Sodium 30 mg 30 mg DAILY SC Last administered on 06/27/17 09:22; Admin Dose 30 MG; Start 06/27/17 at 09:00 Potassium Chloride/Dextrose (KCl/D5W) 1,015 ml @ 75 mls/hr [id number] IV Last administered on 06/27/17 17:47; Admin Dose 75 MLS/HR; Start 06/27/17 at 18:00 TOYA BUCK MD Jun 27, 2017 19:03
[2017-06-27] MEDS: MAGNESIUM HYDROXIDE 30ML CUP PO SCH (20:19)
[2017-06-27] MEDS: MAGNESIUM OXIDE 400 MG TAB PO SCH (20:19)
[2017-06-27] MEDS: MIRTAZAPINE 15 MG TAB PO SCH (20:20)
[2017-06-27 20:58] VITALS: BP 153/67; RESP 20
--- NOTE | 2017-06-28 00:54 | CONS ---
DATE OF ADMISSION: 06/26/2017 DATE OF CONSULTATION: TYPE OF CONSULTATION: Gastroenterology. Dear Dr. Berrios and Dr. Bsahir, Thank you for asking me to see Mrs. Colindres in GI consultation. HISTORY OF PRESENT ILLNESS: As you know, the patient is an 86-year-old [place]isian female. She is a re sident of a group home. Apparently, she had dislodgement of the G-tube several days ago. Since t , she has not been able to take any food or liquid by mouth. She has been losing weight. She gonzalez s a history of failure to thrive. At this time, percutaneous endoscopic gastrostomy tube placement has been requested. PAST MEDICAL HISTORY: Positive for dysphagia, history of hypertension, hypothyroidism and confusion and dementia. REVIEW OF SYSTEMS: Essentially as mentioned above. PAST SURGICAL HISTORY: Percutaneous endoscopic gastrostomy tube placement. MEDICATIONS: Prior to the admission include: 1. Xarelto. 2. Lisinopril. 3. Depakote. 4. Neurontin. 5. Ativan. 6. Mag-Al Plus suspension. 7. Milk of magnesia. 8. Levothyroxine. 9. Cyanocobalamin. 10. Folic acid. PHYSICAL EXAMINATION: GENERAL: The patient is an 86-year-old [place]isian female who at this time is very lethargic. She is u nable to communicate. VITAL SIGNS: Include blood pressure is 156/70, temperature 97.8, pulse is 88. CARDIOVASCULAR: Heart sounds well heard. RESPIRATORY: Normal breath sounds. ABDOMEN: Showed unremarkable findings. LABORATORY WORKUP: Sodium 152, potassium 3.5, chloride 121. Bilirubin is 0.2, ALT is 24, AST is 17 , albumin is 3.0. The coagulation status: PT is 13.5, INR 1.1. CLINICAL IMPRESSION: The patient presenting with a history of difficulty swallowing, history of dis lodgement of the gastrostomy tube, history of hypothyroidism, hypertension and other medical problem s essentially as mentioned above. PLAN: At this time, recommend to proceed with percutaneous endoscopic gastrostomy tube for long-ter m nutritional support. Once again, doctor, thank you for this consultation. Dictated By: WILFREDO HOLLIDAY/JOHN Conf#: [id number] DID#: [id number] CC: ANNE BERRIOS DO;*End*
--- NOTE | 2017-06-28 00:54 | CONS ---
DATE OF ADMISSION: 06/26/2017 DATE OF CONSULTATION: TYPE OF CONSULTATION: Gastroenterology. Dear Dr. Berrios and Dr. Bashir, Thank you for asking me to see Mrs. Colindres in GI consultation. HISTORY OF PRESENT ILLNESS: As you know, the patient is an 86-year-old [place] female. She is a re sident of a intermediate. Apparently, she had dislodgement of the G-tube several days ago. Since t , she has not been able to take any food or liquid by mouth. She has been losing weight. She gonzalez s a history of failure to thrive. At this time, percutaneous endoscopic gastrostomy tube placement has been requested. PAST MEDICAL HISTORY: Positive for dysphagia, history of hypertension, hypothyroidism and confusion and dementia. REVIEW OF SYSTEMS: Essentially as mentioned above. PAST SURGICAL HISTORY: Percutaneous endoscopic gastrostomy tube placement. MEDICATIONS: Prior to the admission include: 1. Xarelto. 2. Lisinopril. 3. Depakote. 4. Neurontin. 5. Ativan. 6. Mag-Al Plus suspension. 7. Milk of magnesia. 8. Levothyroxine. 9. Cyanocobalamin. 10. Folic acid. PHYSICAL EXAMINATION: GENERAL: The patient is an 86-year-old [place] female who at this time is very lethargic. She is u nable to communicate. VITAL SIGNS: Include blood pressure is 156/70, temperature 97.8, pulse is 88. CARDIOVASCULAR: Heart sounds well heard. RESPIRATORY: Normal breath sounds. ABDOMEN: Showed unremarkable findings. LABORATORY WORKUP: Sodium 152, potassium 3.5, chloride 121. Bilirubin is 0.2, ALT is 24, AST is 17 , albumin is 3.0. The coagulation status: PT is 13.5, INR 1.1. CLINICAL IMPRESSION: The patient presenting with a history of difficulty swallowing, history of dis lodgement of the gastrostomy tube, history of hypothyroidism, hypertension and other medical problem s essentially as mentioned above. PLAN: At this time, recommend to proceed with percutaneous endoscopic gastrostomy tube for long-ter m nutritional support. Once again, doctor, thank you for this consultation. Dictated By: WILFREDO HOLLIDAY/JOHN Conf#: [id number] DID#: [id number] CC: ANNE BERRIOS DO;*End*
[2017-06-28] MEDS: LORAZEPAM 1 MG TAB PO SCH ×4 (01:14→19:14)
[2017-06-28 02:59] VITALS: BP 149/71; RESP 18
[2017-06-28] MEDS: LEVOTHYROXINE 50 MCG TAB PO SCH (05:05)
[2017-06-28] MEDS: PANTOPRAZOLE 40 MG INJ IV SCH (05:14)
[2017-06-28] MEDS: POTASSIUM CHLORIDE 30 MEQ in DEXTROSE 5% 1,000 ML IV SCH (07:32)
[2017-06-28 07:58] VITALS: BP 128/68; RESP 19
[2017-06-28] MEDS: DOCUSATE SODIUM 100 MG CAP PO SCH (09:00)
[2017-06-28] MEDS: DIVALPROEX (EC) 250 MG TAB PO SCH ×3 (09:00→21:00)
[2017-06-28] MEDS: FOLIC ACID 1 MG TAB PO SCH (09:00)
[2017-06-28] MEDS: LISINOPRIL 5 MG TAB PO SCH (09:00)
[2017-06-28] MEDS: ENOXAPARIN 30 MG/0.3 ML SYG SC SCH (09:00)
[2017-06-28] MEDS: GABAPENTIN 100 MG CAP PO SCH ×3 (09:00→21:00)
[2017-06-28] MEDS ORDERED: MAGNESIUM SULFATE 2 GM/50 ML 50 ML IVPB ONE (09:00)
[2017-06-28] MEDS: CYANOCOBALAMIN 500 MCG TAB PO SCH (09:00)
--- NOTE | 2017-06-28 09:07 | PN ---
DATE: 06/28/2017 SUBJECTIVE: The patient is scheduled for a G-tube placement this morning. No other events noted. OBJECTIVE: VITAL SIGNS: Blood pressure 149/71, respiration 18, pulse 99, temperature 97.7. HEENT: Head is normocephalic. NECK: Supple. HEART: Regular rate. LUNGS: Show diminished breath sounds at the base. ABDOMEN: Nontender to palpation. No rebound or guarding. EXTREMITIES: Negative for clubbing, cyanosis, no edema. DERMATOLOGIC: No rashes. MUSCULOSKELETAL: No joint effusions. NEUROLOGIC: No change in exam. MEDICATIONS: The patient's medications have been reviewed. LABORATORY DATA: Shows a sodium 145, potassium 3.6, BUN 14, creatinine 0.50. White count 7.8, hemo globin 10.5, hematocrit 40.5, platelet count 153. ASSESSMENT AND PLAN: 1. Pneumonia urinary tract infection. The patient is currently on broad spectrum antibiotics, cont inue. Appreciate infectious disease's evaluation. 2. Nonoliguric acute kidney injury with unknown baseline creatinine. Etiology is secondary to volu me depletion. Renal function has been improving. Continue IV hydration. 3. Anemia, improving. Continue hypertonic fluid. 4. Dysphagia. The patient is pending G-tube placement this morning per gastroenterology. 5. Acute encephalopathy and dementia. Etiology is toxic metabolic. Continue to monitor. 6. Hypertension. Continue to monitor. We will resume blood pressure medications once G-tube is in place. 7. Hypothyroidism. Continue Synthroid. 8. Neuropathy. Continue Neurontin. 9. Possible history of deep venous thrombosis. The patient's Xarelto is on hold pending procedure. We will continue Lovenox. 10. Gastrointestinal and deep venous thrombosis prophylaxis. Continue proton pump inhibitor and Lo venox. 11. Hypomagnesemia. Replete with magnesium sulfate. Dictated By: ANNE CORNEJO/JOHN Conf#: [id number] DID#: [id number]
[2017-06-28] MEDS: CEFEPIME 1GM/50 ML (PMX) 50 ML IVPB SCH (09:14)
[2017-06-28 10:55] VITALS: BP 152/64; PULSE 77; RESP 22
[2017-06-28] MEDS ORDERED: POTASSIUM PHOSPHATE 20 MEQ in SOD CHLORIDE 0.9% 250 ML IVPB ONE (11:00)
[2017-06-28] MEDS ORDERED: PROPOFOL 20 ML ONE (11:19)
[2017-06-28] MEDS ORDERED: CIPROFLOXACIN 400MG/D5W 200 ML ONE (11:23)
--- NOTE | 2017-06-28 11:44 | OPPN ---
Date/Time of Note Date/Time of Note DATE: 06/28/17 TIME: 11:41 Proc Note GI Procedure Date 06/28/17 Indication: other Pre-procedure Diagnosis dysphagia Post-procedure Diagnosis same Procedure Performed: Other Surgeon see signature line Director Of Sales And Marketing none Anesthesia Type: MAC Tourniquet Time none EBL none Transfusion required none Biopsy 1: none Grafts/Implants none Tubes/Drains none Complication(s) none Disposition: PACU Procedure Description egd peg performed WILFREDO ARMSTRONG MD Jun 28, 2017 11:43
--- NOTE | 2017-06-28 11:44 | OPPN ---
Date/Time of Note Date/Time of Note DATE: 06/28/17 TIME: 11:41 Proc Note GI Procedure Date 06/28/17 Indication: other Pre-procedure Diagnosis dysphagia Post-procedure Diagnosis same Procedure Performed: Other Surgeon see signature line Die Cutter Diamond none Anesthesia Type: MAC Tourniquet Time none EBL none Transfusion required none Biopsy 1: none Grafts/Implants none Tubes/Drains none Complication(s) none Disposition: PACU Procedure Description egd peg performed WILFREDO ARMSTRONG MD Jun 28, 2017 11:43
--- NOTE | 2017-06-28 12:05 | GILP ---
DATE OF PROCEDURE: NAME OF PROCEDURE: Esophagogastroduodenoscopy, percutaneous endoscopic gastrostomy tube placement. PREOPERATIVE DIAGNOSIS: Patient presenting with history of difficulty in swallowing and patient had a G-tube in the past which was dislodged. At this time, a new G-tube needs to be placed. POSTOPERATIVE DIAGNOSIS: Patient presenting with history of difficulty in swallowing and patient gonzalez d a G-tube in the past which was dislodged. At this time, a new G-tube needs to be placed. DESCRIPTION OF PROCEDURE: After informed written consent was obtained, the patient was asked to lie in the supine position. Intravenous anesthesia was given by anesthesiologist, Dr. Hsu. When the p atient became somnolent, Olympus video upper endoscope was introduced into the oropharynx, then into the esophagus. Esophagus appeared normal. Stomach appeared normal. Old gastrostomy site was note d. Duodenum appeared normal. At this time, the anterior abdominal wall near the old gastrostomy si te, this was prepared with Betadine and alcohol. At this time, by using the scalpel, a 2 mm incisio n was made. Through this incision, a trocar was inserted into the stomach. After removing the styl et, the guidewire was inserted into the stomach. The guidewire was grabbed with a polypectomy snare and then the guidewire was brought out through the mouth along with the endoscope. To this end of the guidewire, a #20 Microvasive G-tube was tied in a loop fashion and then it was brought out throu gh the abdominal wall incision. A retention bumper was placed over the G-tube close to the skin. T apered end of the gastrostomy tube was cut, the adapter was placed and the procedure was terminated. PLAN: Recommend starting G-tube feeding in the a.m. Dictated By: WILFREDO HOLLIDAY/NTS Conf#: [id number] DID#: [id number] CC: JUAN OSORIO MD;*EndCC*
[2017-06-28] MEDS ORDERED: MIDAZOLAM 1 MG/ML 2 ML INJ IV PRN (12:30)
[2017-06-28] MEDS ORDERED: FENTAnyl 50 MCG/ML VIAL IV PRN ×3 (12:30)
[2017-06-28] MEDS ORDERED: EPHEDrine SULFATE 50 MG/5 ML SYG IV PRN (12:30)
[2017-06-28] MEDS ORDERED: ONDANSETRON 4 MG INJ IV PRN (12:30)
[2017-06-28] MEDS ORDERED: OXYCODONE/ACETAMINOPHEN (5/325) TAB PO PRN ×2 (12:30)
[2017-06-28] MEDS ORDERED: MEPERIDINE 25 MG INJ IV PRN (12:30)
[2017-06-28] MEDS ORDERED: DIPHENHYDRAMINE 50 MG INJ IV PRN (12:30)
[2017-06-28] MEDS ORDERED: hydrALAzine 20 MG INJ IV PRN (12:30)
[2017-06-28] MEDS ORDERED: METOCLOPRAMIDE 10 MG INJ IV PRN (12:30)
[2017-06-28] MEDS ORDERED: LABETALOL HCL 20MG INJ IV PRN (12:30)
[2017-06-28 12:34] VITALS: BP 168/70; PULSE 106; RESP 24
[2017-06-28 12:55] VITALS: BP 128/59; PULSE 93; RESP 18
--- NOTE | 2017-06-28 12:59 | CONS ---
Date/Time of Note Date/Time of Note DATE: 06/28/17 TIME: 12:57 Assessment/Plan Assessment/Plan Chief Complaint/Hosp Course ASSESSMENT AND PLAN: This is an 86-year-old female who presents with: Hypercoagulable state with hx deep venous thrombosis and bedridden state and HX PAF in the past The patient is on Xarelto. \ We will continue. 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 Nonoliguric acute kidney injury Hypernatremia, Dysphagia status post G-tube in the past, now needs new one Acute encephalopathy on dementia. Etiology is toxic metabolic. Hypertension. Hypothyroidism. Continue Synthroid. Neuropathy. Continue Neurontin. Gastrointestinal and deep venous thrombosis prophylaxis. Continue proton pump inhibitor and Xarelto. Problems: Consultation Date/Type/Reason Admit Date/Time Jun 26, 2017 at 21:46 Initial Consult Date 06.26.17 Type of Consultation: [facility] Referring Provider: ANNE BERRIOS DO 24 HR Interval Summary Free Text/Dictation ALL NOTED NO NEW EVENTS ON XARELTO NO BLEEDING Exam/Review of Systems Vital Signs Vitals Vital Signs Date Time Temp Pulse Resp B/P Pulse Ox O2 Delivery O2 Flow Rate FiO2 06/28/17 12:34 106 24 168/70 95 Nasal Cannula 4.0 06/28/17 10:55 97.2 Intake and Output 06/27/17 06/27/17 06/28/17 15:00 23:00 07:00 Intake Total 200 ml 675 ml 750 ml Balance 200 ml 675 ml 750 ml Exam HEENT: Head is normocephalic. NECK: Supple. HEART: Regular rate. LUNGS: Show diminished breath sounds at the base. ABDOMEN: Nontender to palpation. No rebound or guarding. EXTREMITIES: Negative for clubbing, cyanosis, no edema. DERMATOLOGIC: No rashes. MUSCULOSKELETAL: No joint effusions. NEUROLOGIC: No change in exam. Results Result Diagram: 06/28/17 0611 06/28/17 0611 Results 24 hrs Laboratory Tests Test 06/28/17 06:11 White Blood Count 7.8 # Red Blood Count 4.24 Hemoglobin 12.5 Hematocrit 40.5 Mean Corpuscular Volume 95.5 Mean Corpuscular Hemoglobin 29.5 Mean Corpuscular Hemoglobin Concent 30.9 L Red Cell Distribution Width 12.7 Platelet Count 153 Mean Platelet Volume 9.9 Neutrophils % 67.6 Lymphocytes % 22.8 Monocytes % 7.7 Eosinophils % 1.2 Basophils % 0.3 Nucleated Red Blood Cells % 0.0 Neutrophils # 5.3 Lymphocytes # 1.8 Monocytes # 0.6 Eosinophils # 0.1 Basophils # 0.0 Nucleated Red Blood Cells # 0.0 Sodium Level 145 H Potassium Level 3.6 Chloride Level 113 H Carbon Dioxide Level 26 Anion Gap 10 Blood Urea Nitrogen 14 # Creatinine 0.50 Glucose Level 149 Calcium Level 9.3 Phosphorus Level 2.3 L Magnesium Level 1.3 L Total Bilirubin 0.3 Direct Bilirubin 0.00 Indirect Bilirubin 0.3 Aspartate Amino Transf (AST/SGOT) 45 Alanine Aminotransferase (ALT/SGPT) 21 Alkaline Phosphatase 78 Total Protein 6.1 Albumin 2.9 L Globulin 3.20 Albumin/Globulin Ratio 0.90 Medications Medications Current Medications Ondansetron HCl (Zofran Inj) 4 mg Q6H PRN IV NAUSEA AND/OR VOMITING; Start 06/27/17 at 00:30 Zolpidem Tartrate (Ambien) 5 mg QHS PRN PO SLEEP; Start 06/27/17 at 00:30 Acetaminophen (Tylenol Tab) 650 mg Q6H PRN PO MILD PAIN LEVEL 1-3; Start at 00:30 Cyanocobalamin (Vitamin B12) 1,000 mcg DAILY PO ; Start 06/27/17 at 09:00 Divalproex Sodium (Depakote) 250 mg TID PO ; Start 06/27/17 at 09:00 Docusate Sodium (Colace) 100 mg DAILY PO ; Start 06/27/17 at 09:00 Folic Acid (Folic Acid) 1 mg DAILY PO ; Start 06/27/17 at 09:00 Gabapentin (Neurontin) 100 mg TID PO ; Start 06/27/17 at 09:00 Lisinopril (Zestril) 5 mg DAILY PO ; Start 06/27/17 at 09:00 Al Hydrox/Mg Hydrox/Simethicone (Mag-Al Plus) 30 ml Q6H PRN PO UPSET STOMACH; Start 06/27/17 at 00:30 Magnesium Hydroxide (Milk Of Mag) 30 ml QHS PO ; Start 06/27/17 at 21:00 Magnesium Oxide (Mag-Ox 400) 400 mg QHS PO ; Start 06/27/17 at 21:00 Mirtazapine (Remeron) 7.5 mg HS PO ; Start 06/27/17 at 21:00 Rivaroxaban 10 mg 10 mg QAM PO ; Start 06/27/17 at 09:00; Status Future Hold Cefepime HCl 50 ml @ 100 mls/hr Q12 IVPB Last administered on 06/28/17 09:14 ; Admin Dose 100 MLS/HR; Start 06/27/17 at 09:00 Vancomycin HCl (Vancocin) 250 ml @ 125 mls/hr Q24H IVPB Last administered on 06/27/17 18:02; Admin Dose 125 MLS/HR; Start 06/27/17 at 18:00 Lorazepam (Ativan) 0.5 mg Q6H PRN IV anxiety Last administered on 06/27/17 01: 27; Admin Dose 0.5 MG; Start 06/27/17 at 01:30 Lorazepam (Ativan) 0.5 mg Q6H PRN PO ANXIETY; Start 06/27/17 at 01:13 Lorazepam (Ativan) 1 mg Q6H PO ; Start 06/27/17 at 01:14 Influenza Virus Vaccine (Fluzone) 0.5 ml ONCE ONCE IM* ; Start 06/29/17 at 09:00 ; Stop 06/29/17 at 09:01 Morphine Sulfate (morphine) 2 mg Q6H PRN IV severe pain Last administered on 22:44; Admin Dose 2 MG; Start 06/27/17 at 05:30 Pantoprazole (Protonix Iv) 40 mg DAILY@06 IV Last administered on 06/28/17 05: 14; Admin Dose 40 MG; Start 06/27/17 at 10:00 Enoxaparin Sodium 30 mg 30 mg DAILY SC Last administered on 06/27/17 09:22; Admin Dose 30 MG; Start 06/27/17 at 09:00 Potassium Chloride 30 meq/ Dextrose 1,015 ml @ 75 mls/hr [id number] IV Last administered on 06/27/17 17:47; Admin Dose 75 MLS/HR; Start 06/27/17 at 18:00 Potassium Phosphate/Sodium Chloride (K Phos (Meq)/NS) 254.5455 ml @ 63.636 m... ONCE ONCE IVPB ; Start 06/28/17 at 11:00; Stop 06/28/17 at 14:59 TOYA BUCK MD Jun 28, 2017 12:59
--- NOTE | 2017-06-28 14:11 | RADRPT ---
Vent Rate: 93 bpm RR Interval: 0 msec PA Interval: 158 msec QRS Duration: 68 msec QT Interval: 382 msec QTC Interval: 474 msec P-R-T [place]: 43 - 23 - 6 degrees Normal sinus rhythm Cannot rule out Anterior infarct , age undetermined Abnormal ECG Electronically Signed By: Favio Lizama [id number]
--- NOTE | 2017-06-28 14:11 | RADRPT ---
Vent Rate: 93 bpm RR Interval: 0 msec MI Interval: 158 msec QRS Duration: 68 msec QT Interval: 382 msec QTC Interval: 474 msec P-R-T [place]: 43 - 23 - 6 degrees Normal sinus rhythm Cannot rule out Anterior infarct , age undetermined Abnormal ECG Electronically Signed By: Favio Lizama [id number]
--- NOTE | 2017-06-28 14:11 | RADRPT ---
Vent Rate: 93 bpm RR Interval: 0 msec DC Interval: 158 msec QRS Duration: 68 msec QT Interval: 382 msec QTC Interval: 474 msec P-R-T [place]: 43 - 23 - 6 degrees Normal sinus rhythm Cannot rule out Anterior infarct , age undetermined Abnormal ECG Electronically Signed By: Favio Lizama [id number]
--- NOTE | 2017-06-28 17:35 | RADRPT ---
PROCEDURE: XR Chest 1 view. CLINICAL INDICATION: Shortness of breath. TECHNIQUE: AP views of the chest were obtained. COMPARISON: DR SALGADO 06/26/2017 FINDINGS: The heart is large. Calcified atherosclerosis is noted in the aorta. Patchy left lower lobe infiltr ates and potential small left pleural effusion are stable. Atelectasis is seen scattered in the righ t lung. Elevated right hemidiaphragm is noted. Osseous structures are intact. IMPRESSION: Cardiomegaly with calcified atherosclerosis in the aorta. Stable patchy left lower lobe infiltrates and potential small left pleural effusion. Elevated right hemidiaphragm. Scattered atelectasis in the right lung. RPTAT: AA .Onesimo Small MD, Date Time Electronically viewed and signed by .Onesimo Small MD, on 06/28/2017 17:34 .P/
--- NOTE | 2017-06-28 18:37 | PN ---
DATE: 06/28/2017 SUBJECTIVE: The patient just had a procedure for PEG placement. She is lethargic, looks comfortabl e, afebrile. LABORATORY: WBC 7.8, no shift, no bands. BUN is 14. Creatinine is 0.50. ANTIMICROBIALS: 1. Vancomycin. 2. Cefepime. MICROBIOLOGY: Urine culture growing gram-negative rods. ALLERGIES: 1. AMPICILLIN. 2. MEROPENEM. IMAGING: Chest x-ray on admission revealed mild left basilar pneumonia. PHYSICAL EXAMINATION: GENERAL: Fragile, chronically ill-appearing, elderly woman in no distress. HEENT: Head atraumatic, normocephalic. Sclerae anicteric. Buccal mucosa dry. NECK: Supple. CHEST: Rise symmetrical. LUNGS: Breath sounds diminished to bases. ASSESSMENT: 1. Pneumonia. 2. Urinary tract infection. 3. Acute encephalopathy. 4. Dementia. 5. Failure to thrive with dysphagia. PLAN: The patient remains stable. Pending urine culture. Continue present care, antibiotics. Fol [facility] gastroenterology recommendations. Dictated By: SPARKLE DAY COREROOM FOUNDRY LABORER for AVERY MCDONALD/JOHN Conf#: [id number] DID#: [id number]
--- NOTE | 2017-06-28 18:37 | PN ---
DATE: 06/28/2017 SUBJECTIVE: The patient just had a procedure for PEG placement. She is lethargic, looks comfortabl e, afebrile. LABORATORY: WBC 7.8, no shift, no bands. BUN is 14. Creatinine is 0.50. ANTIMICROBIALS: 1. Vancomycin. 2. Cefepime. MICROBIOLOGY: Urine culture growing gram-negative rods. ALLERGIES: 1. AMPICILLIN. 2. MEROPENEM. IMAGING: Chest x-ray on admission revealed mild left basilar pneumonia. PHYSICAL EXAMINATION: GENERAL: Fragile, chronically ill-appearing, elderly woman in no distress. HEENT: Head atraumatic, normocephalic. Sclerae anicteric. Buccal mucosa dry. NECK: Supple. CHEST: Rise symmetrical. LUNGS: Breath sounds diminished to bases. ASSESSMENT: 1. Pneumonia. 2. Urinary tract infection. 3. Acute encephalopathy. 4. Dementia. 5. Failure to thrive with dysphagia. PLAN: The patient remains stable. Pending urine culture. Continue present care, antibiotics. Fol [facility] gastroenterology recommendations. Dictated By: SPARKLE DAY INFORMATION SYSTEMS COORDINATOR for AVERY MCDONALD/JOHN Conf#: [id number] DID#: [id number]
--- NOTE | 2017-06-28 18:37 | PN ---
DATE: 06/28/2017 SUBJECTIVE: The patient just had a procedure for PEG placement. She is lethargic, looks comfortabl e, afebrile. LABORATORY: WBC 7.8, no shift, no bands. BUN is 14. Creatinine is 0.50. ANTIMICROBIALS: 1. Vancomycin. 2. Cefepime. MICROBIOLOGY: Urine culture growing gram-negative rods. ALLERGIES: 1. AMPICILLIN. 2. MEROPENEM. IMAGING: Chest x-ray on admission revealed mild left basilar pneumonia. PHYSICAL EXAMINATION: GENERAL: Fragile, chronically ill-appearing, elderly woman in no distress. HEENT: Head atraumatic, normocephalic. Sclerae anicteric. Buccal mucosa dry. NECK: Supple. CHEST: Rise symmetrical. LUNGS: Breath sounds diminished to bases. ASSESSMENT: 1. Pneumonia. 2. Urinary tract infection. 3. Acute encephalopathy. 4. Dementia. 5. Failure to thrive with dysphagia. PLAN: The patient remains stable. Pending urine culture. Continue present care, antibiotics. Fol [facility] gastroenterology recommendations. Dictated By: SPARKLE DAY SHOTGUN SHELL ASSEMBLY MACHINE OPERATOR for AVERY MCDONALD/JOHN Conf#: [id number] DID#: [id number]
[2017-06-28 20:00] VITALS: BP 100/69; RESP 19
[2017-06-28] MEDS: MAGNESIUM OXIDE 400 MG TAB PO SCH (21:00)
[2017-06-28] MEDS: MAGNESIUM HYDROXIDE 30ML CUP PO SCH (21:00)
[2017-06-28] MEDS: MIRTAZAPINE 15 MG TAB PO SCH (21:00)
[2017-06-28] MEDS: VANCOMYCIN 1 GM in NS 250 ML IVPB SCH (22:30)
[2017-06-28] MEDS: LORAZEPAM 2 MG INJ IV PRN (22:41)
[2017-06-29] MEDS: CEFEPIME 1GM/50 ML (PMX) 50 ML IVPB SCH ×3 (00:32→22:51)
[2017-06-29 02:00] VITALS: BP 116/86; RESP 20
[2017-06-29] MEDS: POTASSIUM CHLORIDE 30 MEQ in DEXTROSE 5% 1,000 ML IV SCH (03:42)
[2017-06-29] MEDS: morphine 2 MG INJ IV PRN (04:04)
[2017-06-29] MEDS ORDERED: ACETAMINOPHEN 325 MG TAB GTB PRN (04:24)
[2017-06-29] MEDS ORDERED: ZOLPIDEM 5 MG TAB GTB PRN (04:30)
[2017-06-29] MEDS ORDERED: AL HYDROX/MG HYDROX/SIMETH 30 ML CUP GTB PRN (04:30)
[2017-06-29] MEDS: LORAZEPAM 1 MG TAB GTB SCH ×5 (04:30→22:53)
[2017-06-29] MEDS ORDERED: LORAZEPAM 0.5 MG TAB GTB PRN (04:30)
[2017-06-29] MEDS: PANTOPRAZOLE 40 MG INJ IV SCH (05:41)
[2017-06-29] MEDS: LEVOTHYROXINE 50 MCG TAB GTB SCH (06:26)
[2017-06-29 08:00] VITALS: BP 112/56; RESP 18
[2017-06-29] MEDS: LORAZEPAM 2 MG INJ IV PRN (08:36)
[2017-06-29] MEDS: GABAPENTIN 100 MG CAP GTB SCH ×3 (08:39→22:52)
[2017-06-29] MEDS: FOLIC ACID 1 MG TAB GTB SCH (08:39)
[2017-06-29] MEDS: CYANOCOBALAMIN 500 MCG TAB GTB SCH (08:39)
[2017-06-29] MEDS: LISINOPRIL 5 MG TAB GTB SCH (08:39)
[2017-06-29] MEDS: DOCUSATE SODIUM 10 MG/ML (10ML CUP) GTB SCH (08:39)
[2017-06-29] MEDS: ENOXAPARIN 30 MG/0.3 ML SYG SC SCH (08:44)
[2017-06-29] MEDS ORDERED: INFLUENZA VIRUS VACCINE 0.5 ML (DISPENSING) IM* ONE (09:00)
[2017-06-29] MEDS ORDERED: HYDROCODONE/APAP (5/325) TAB PO PRN (09:30)
[2017-06-29] MEDS: DIVALPROEX SPRINKLE 125 MG CAP GTB SCH ×3 (10:27→22:56)
--- NOTE | 2017-06-29 11:54 | RADRPT ---
PROCEDURE: CT abdomen and pelvis without contrast. CLINICAL INDICATION: Abdominal Pain TECHNIQUE: CT scan of the abdomen and pelvis without contrast was performed and is reconstructed a t 5 mm contiguous axial intervals from the dome of the diaphragm to the inferior pubic rami.. The p atient was scanned without intravenous contrast. Sagittal and coronal reformatted images were obtai daksha from the axial source images. The calculated radiation dose measures 1174 mGy centimeters. The C TDI measures 21 mGy. Individualized dose optimization technique was used for the performance of this exam. This included 1. Automated exposure control. 2. Adjustment of the mA and / or kV according to the patient's size. 3. Use of iterative reconstructed technique. COMPARISON: None. FINDINGS: The lung bases are clear of any infiltrate or nodule. No effusion is seen. Noted is a large hiatal hernia. There is atelectasis in the dependent portion of both lower lobes. The liver is of normal size, contour and attenuation with no mass or ductal dilatation. There are ga llstones. No splenic or adrenal abnormalities present. there is fatty replacement of the pancreas. Kidneys are of normal size and contour. No hydronephrosis, calculus or masses seen. Ureters are o f normal course and caliber with no stone. No bladder mass or stone is present. Atrophic postmenopa usal uterus is normal. No adnexal mass is seen. There is no aneurysm. No adenopathy is present. No bowel mass or obstruction is present. There is a feeding gastrostomy. Noted is diverticulosis. The appendix is normal. No phlegmon, ascites or pneumoperitoneum is visualized. There is mild rotary dextroscoliosis of the lumbar spine with degenerative disc disease. IMPRESSION: No evidence of urolithiasis, obstructive uropathy, diverticulitis or appendicitis. Diverticulosis. Hiatal hernia. Bibasilar atelectasis. .Anthony Feliz MD, MD Date Time Electronically viewed and signed by .Anthony Feliz MD, on 06/29/2017 11:53 .A/
[2017-06-29] MEDS ORDERED: morphine 2 MG INJ IV PRN (13:00)
[2017-06-29] MEDS ORDERED: LORAZEPAM 2 MG INJ IV PRN (13:00)
[2017-06-29 14:00] VITALS: BP 177/89; RESP 18
--- NOTE | 2017-06-29 15:23 | RADRPT ---
PROCEDURE: XR Hip. CLINICAL INDICATION: Pain. TECHNIQUE: 5 views were obtained. An AP view of the pelvis and frog lateral views of both hips we re performed. COMPARISON: None. FINDINGS: Right side: Moderate hip arthrosis findings consist of central joint space narrowing, subcortical sc lerosis and osteophyte formation. There is a pistol assembling inspector deformity of osteophytes. The bones are ost eoporotic. No evidence for fracture. There is trochanteric enthesopathy which can be seen with glute al tendinopathy. There are ossified injection granulomas within the soft tissues. There is fatty atr ophy of the musculature. Left side: Moderate hip arthrosis findings consist of central joint space narrowing, subcortical scl erosis and osteophyte formation. There is a pistol assembling inspector deformity of osteophytes. There is irregular lucency at the femoral head neck junction. This is most likely a variation due to osteoporosis. If the patient has had trauma and there is suspicion for hip fracture, consider CT or limited MRI for f urther evaluation. The bones are osteoporotic. No evidence for fracture. There is trochanteric enthe sopathy which can be seen with gluteal tendinopathy. There is fatty atrophy of the musculature. IMPRESSION: 1. Moderate bilateral hip arthrosis. 2. Osteoporosis. 3. Irregular lucency of the left femoral head neck junction is most likely due to variations in ost eoporosis. And there is a suspicion for hip fracture, CT are limited MRI would be of benefit for fur ther evaluation if clinically indicated. RPTAT: XX .Ceasar Jaquez MD, Date Time Electronically viewed and signed by .Ceasar Jaquez MD, on 06/29/2017 15:22 .T/
--- NOTE | 2017-06-29 16:51 | PN ---
DATE: 06/29/2017 SUBJECTIVE: The patient had her PEG tube placed yesterday. This morning, the patient was noted to be screaming with unclear etiology as the patient is demented and nonverbal. No other events noted. OBJECTIVE: VITAL SIGNS: Blood pressure is 112/56, pulse 104, respirations 18, temperature 98.0. HEENT: Head is normocephalic. NECK: Supple. HEART: Regular rate. LUNGS: Show diminished breath sounds at base. ABDOMEN: Soft, with possible tenderness to palpation. EXTREMITIES: Negative for clubbing, cyanosis, or edema. MUSCULOSKELETAL: Questionable tenderness bilateral hip. NEUROLOGIC: Limited exam due to lack of patient cooperation. LABORATORY DATA: From 06/29 is currently pending. ASSESSMENT AND PLAN: 1. Pneumonia, urinary tract infection. Continue current antibiotic regimen. 2. Agitation. Etiology is unclear. Questionable tenderness on exam versus dementia and psychosis. Plan is to get a CT abdomen and pelvis and bilateral hip x-ray. Will monitor closely. Continue p ain medication, morphine and Ativan and Depakote. 3. Nonoliguric acute kidney injury with unknown baseline creatinine. Etiology is secondary to hemo dynamics. Renal function is improved with IV fluids. 4. Anemia. Monitor hemoglobin and hematocrit levels. 5. Dysphagia, status post percutaneous endoscopic gastrostomy. Continue tube feeding, advance towa rds goal. 6. Hypertension. Continue current blood pressure regimen. 7. Hypothyroidism. Continue Synthroid. 8. Neuropathy. Continue Neurontin. 9. Deep venous thrombosis. Continue Xarelto. 10. Hypomagnesemia. Continue to monitor and replete. 11. Gastrointestinal and deep venous thrombosis prophylaxis. Dictated By: ANNE CORNEJO/JOHN Conf#: [id number] DID#: [id number]
[2017-06-29 17:02] VITALS: BP 140/80; PULSE 78
--- NOTE | 2017-06-29 18:25 | CONS ---
Date/Time of Note Date/Time of Note DATE: 06/29/17 TIME: 18:18 Consultation Date/Type/Reason Admit Date/Time Jun 26, 2017 at 21:46 Initial Consult Date SUBJECTIVE: 86y/o female S/P recent PEG placement currently being treated for asp PNA and UTI. She is sleepy, looks comfortable, afebrile. VS: 140/80 P78 R:18 T:97.5 SO2:99% LABORATORY: WBC-7.5 H&H: stable BUN-10 Cr-0.55 URINE CULTURE Final Organism 1 PROTEUS MIRABILIS COLONY COUNT 50,000 - 60,000 CFU/ml ANTIMICROBIALS: 1. Vancomycin. 2. Cefepime. MICROBIOLOGY: Urine culture growing gram-negative rods. ALLERGIES: 1. AMPICILLIN. 2. MEROPENEM. IMAGING: Chest x-ray on admission revealed mild left basilar pneumonia. PHYSICAL EXAMINATION: GENERAL: Fragile, chronically ill-appearing, elderly woman in no distress. HEENT: Head atraumatic, normocephalic. Sclerae anicteric. Buccal mucosa dry. NECK: Supple. CHEST: Rise symmetrical. LUNGS: Breath sounds diminished to bases. ASSESSMENT: 1. Pneumonia. 2. Urinary tract infection. 3. Acute encephalopathy. 4. Dementia. 5. Failure to thrive with dysphagia S/P PEG placement. PLAN: The patient remains stable. Continue current antibiotics. Type of Consultation: ID Referring Provider: ANNE BERRIOS DO Exam/Review of Systems Vital Signs Vitals Vital Signs Date Time Temp Pulse Resp B/P Pulse Ox O2 Delivery O2 Flow Rate FiO2 06/29/17 17:02 78 140/80 06/29/17 14:00 97.5 18 99 06/29/17 08:10 Nasal Cannula 2.0 Intake and Output 06/28/17 06/28/17 06/29/17 15:00 23:00 07:00 Intake Total 280 ml 0 ml 400 ml Balance 280 ml 0 ml 400 ml Results Result Diagram: 06/29/17 1459 06/29/17 1459 Results 24 hrs Laboratory Tests Test 06/29/17 14:59 White Blood Count 7.5 Red Blood Count 3.85 L Hemoglobin 12.0 Hematocrit 36.5 L Mean Corpuscular Volume 94.8 Mean Corpuscular Hemoglobin 31.2 Mean Corpuscular Hemoglobin Concent 32.9 Red Cell Distribution Width 12.7 Platelet Count 149 Mean Platelet Volume 10.6 H Neutrophils % 69.6 Lymphocytes % 20.5 Monocytes % 8.6 Eosinophils % 0.7 Basophils % 0.3 Nucleated Red Blood Cells % 0.0 Neutrophils # 5.2 Lymphocytes # 1.5 Monocytes # 0.6 Eosinophils # 0.1 Basophils # 0.0 Nucleated Red Blood Cells # 0.0 Sodium Level 140 Potassium Level 3.5 Chloride Level 107 Carbon Dioxide Level 24 Anion Gap 13 Blood Urea Nitrogen 10 Creatinine 0.55 Glucose Level 191 Calcium Level 9.2 Phosphorus Level 2.5 Magnesium Level 1.4 L Medications Medications Current Medications Ondansetron HCl (Zofran Inj) 4 mg Q6H PRN IV NAUSEA AND/OR VOMITING; Start 06/27/17 at 00:30 Rivaroxaban 10 mg 10 mg QAM PO ; Start 06/27/17 at 09:00; Status Future hold Cefepime HCl (Maxipime 1gm/50 ml (Pmx)) 50 ml @ 100 mls/hr Q12 IVPB Last administered on 06/29/17 08:39; Admin Dose 100 MLS/HR; Start 06/27/17 at 09:00 Cyanocobalamin (Vitamin B12) 1,000 mcg DAILY GTB Last administered on 08:39; Admin Dose 1,000 MCG; Start 06/29/17 at 09:00 Folic Acid (Folic Acid) 1 mg DAILY GTB Last administered on 06/29/17 08:39; Admin Dose 1 MG; Start 06/29/17 at 09:00 Gabapentin (Neurontin) 100 mg TID GTB Last administered on 06/29/17 13:54; Admin Dose 100 MG; Start 06/29/17 at 09:00 Al Hydrox/Mg Hydrox/Simethicone (Mag-Al Plus) 30 ml Q6H PRN GTB UPSET STOMACH; Start 06/29/17 at 04:30 Acetaminophen (Tylenol Tab) 650 mg Q6H PRN GTB MILD PAIN LEVEL 1-3; Start 06/29 at 04:24 Lisinopril (Zestril) 5 mg DAILY GTB Last administered on 06/29/17 08:39; Admin Dose 5 MG; Start 06/29/17 at 09:00 Magnesium Hydroxide (Milk Of Mag) 30 ml QHS GTB ; Start 06/29/17 at 21:00 Lorazepam (Ativan) 0.5 mg Q6H PRN GTB ANXIETY; Start 06/29/17 at 04:30 Lorazepam (Ativan) 1 mg Q6H GTB Last administered on 06/29/17 12:07; Admin Dose 1 MG; Start 06/29/17 at 04:30 Magnesium Oxide (Mag-Ox 400) 400 mg QHS GTB ; Start 06/29/17 at 21:00 Mirtazapine (Remeron) 7.5 mg HS GTB ; Start 06/29/17 at 21:00 Zolpidem Tartrate (Ambien) 5 mg QHS PRN GTB SLEEP; Start 06/29/17 at 04:30 Docusate Sodium (Colace Liquid Cup) 100 mg DAILY GTB Last administered on 08:39; Admin Dose 100 MG; Start 06/29/17 at 09:00 Divalproex Sodium (Depakote Sprinkle) 250 mg TID GTB Last administered on 13:54; Admin Dose 250 MG; Start 06/29/17 at 09:00 Morphine Sulfate (morphine) 2 mg Q4 PRN IV severe pain Last administered on 12:15; Admin Dose 2 MG; Start 06/29/17 at 13:00 Lorazepam (Ativan) 0.5 mg Q4H PRN IV anxiety; Start 06/29/17 at 13:00 Acetaminophen/ Hydrocodone Bitart 1 tab 1 tab Q6H PRN PO pain; Start 06/29/17 at 09:30 Vancomycin HCl (Vancocin) 250 ml @ 125 mls/hr Q24H IVPB ; Start 06/29/17 at 22: 00 Lansoprazole 30 mg 30 mg DAILY@06 GTB ; Start 06/30/17 at 06:00 Magnesium Sulfate/ Dextrose (Magnesium Sulfate 1 Gm/D5W) 100 ml @ 100 mls/hr ONCE ONCE IVPB Last administered on 06/29/17 18:12; Admin Dose 100 MLS/HR; Start 06/29/17 at 18:30; Stop 06/29/17 at 19:29 ARNOLDO CATALAN Jun 29, 2017 18:25
[2017-06-29] MEDS ORDERED: MAGNESIUM SULFATE 1 GM/D5W 100 ML IVPB ONE (18:30)
[2017-06-29 20:02] VITALS: BP 115/67; RESP 16
[2017-06-29] MEDS ORDERED: VANCOMYCIN 1 GM in NS 250 ML IVPB SCH (22:00)
[2017-06-29] MEDS: MAGNESIUM OXIDE 400 MG TAB GTB SCH (22:53)
[2017-06-29] MEDS: MAGNESIUM HYDROXIDE 30ML CUP GTB SCH (22:54)
[2017-06-29] MEDS: MIRTAZAPINE 15 MG TAB GTB SCH (22:54)
--- NOTE | 2017-06-29 23:51 | CONS ---
Date/Time of Note Date/Time of Note DATE: 06/29/17 TIME: 23:51 Assessment/Plan Assessment/Plan Chief Complaint/Hosp Course ASSESSMENT AND PLAN: This is an 86-year-old female who presents with: Hypercoagulable state with hx deep venous thrombosis and bedridden state and HX PAF in the past The patient is on Xarelto. \ We will continue. 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 Nonoliguric acute kidney injury Hypernatremia, Dysphagia status post G-tube in the past, now needs new one Acute encephalopathy on dementia. Etiology is toxic metabolic. Hypertension. Hypothyroidism. Continue Synthroid. Neuropathy. Continue Neurontin. Gastrointestinal and deep venous thrombosis prophylaxis. Continue proton pump inhibitor and Xarelto. Problems: Consultation Date/Type/Reason Admit Date/Time Jun 26, 2017 at 21:46 Initial Consult Date 06.26.17 [facility] Referring Provider: ANNE BERRIOS DO 24 HR Interval Summary Free Text/Dictation ALL NOTED Exam/Review of Systems Vital Signs Vitals Vital Signs Date Time Temp Pulse Resp B/P Pulse Ox O2 Delivery O2 Flow Rate FiO2 06/29/17 20:02 97.7 94 16 115/67 95 06/29/17 08:10 Nasal Cannula 2.0 Intake and Output 06/28/17 06/28/17 06/29/17 15:00 23:00 07:00 Intake Total 280 ml 0 ml 400 ml Balance 280 ml 0 ml 400 ml Exam HEENT: Head is normocephalic. NECK: Supple. HEART: Regular rate. LUNGS: Show diminished breath sounds at the base. ABDOMEN: Nontender to palpation. No rebound or guarding. EXTREMITIES: Negative for clubbing, cyanosis, no edema. DERMATOLOGIC: No rashes. MUSCULOSKELETAL: No joint effusions. NEUROLOGIC: No change in exam. Results Result Diagram: 06/29/17 1459 06/29/17 1459 Results 24 hrs Laboratory Tests Test 06/29/17 14:59 White Blood Count 7.5 Red Blood Count 3.85 L Hemoglobin 12.0 Hematocrit 36.5 L Mean Corpuscular Volume 94.8 Mean Corpuscular Hemoglobin 31.2 Mean Corpuscular Hemoglobin Concent 32.9 Red Cell Distribution Width 12.7 Platelet Count 149 Mean Platelet Volume 10.6 H Neutrophils % 69.6 Lymphocytes % 20.5 Monocytes % 8.6 Eosinophils % 0.7 Basophils % 0.3 Nucleated Red Blood Cells % 0.0 Neutrophils # 5.2 Lymphocytes # 1.5 Monocytes # 0.6 Eosinophils # 0.1 Basophils # 0.0 Nucleated Red Blood Cells # 0.0 Sodium Level 140 Potassium Level 3.5 Chloride Level 107 Carbon Dioxide Level 24 Anion Gap 13 Blood Urea Nitrogen 10 Creatinine 0.55 Glucose Level 191 Calcium Level 9.2 Phosphorus Level 2.5 Magnesium Level 1.4 L Medications Medications Current Medications Ondansetron HCl (Zofran Inj) 4 mg Q6H PRN IV NAUSEA AND/OR VOMITING; Start 06/27/17 at 00:30 Rivaroxaban 10 mg 10 mg QAM PO ; Start 06/27/17 at 09:00; Status Future hold Cefepime HCl (Maxipime 1gm/50 ml (Pmx)) 50 ml @ 100 mls/hr Q12 IVPB Last administered on 06/29/17 22:51; Admin Dose 100 MLS/HR; Start 06/27/17 at 09:00 Cyanocobalamin (Vitamin B12) 1,000 mcg DAILY GTB Last administered on 08:39; Admin Dose 1,000 MCG; Start 06/29/17 at 09:00 Folic Acid (Folic Acid) 1 mg DAILY GTB Last administered on 06/29/17 08:39; Admin Dose 1 MG; Start 06/29/17 at 09:00 Gabapentin (Neurontin) 100 mg TID GTB Last administered on 06/29/17 22:52; Admin Dose 100 MG; Start 06/29/17 at 09:00 Al Hydrox/Mg Hydrox/Simethicone (Mag-Al Plus) 30 ml Q6H PRN GTB UPSET STOMACH; Start 06/29/17 at 04:30 Acetaminophen (Tylenol Tab) 650 mg Q6H PRN GTB MILD PAIN LEVEL 1-3; Start 06/29 at 04:24 Lisinopril (Zestril) 5 mg DAILY GTB Last administered on 06/29/17 08:39; Admin Dose 5 MG; Start 06/29/17 at 09:00 Magnesium Hydroxide (Milk Of Mag) 30 ml QHS GTB Last administered on 06/29/17 22:54; Admin Dose 30 ML; Start 06/29/17 at 21:00 Lorazepam (Ativan) 0.5 mg Q6H PRN GTB ANXIETY; Start 06/29/17 at 04:30 Lorazepam (Ativan) 1 mg Q6H GTB Last administered on 06/29/17 22:53; Admin Dose 1 MG; Start 06/29/17 at 04:30 Magnesium Oxide (Mag-Ox 400) 400 mg QHS GTB Last administered on 06/29/17 22: 53; Admin Dose 400 MG; Start 06/29/17 at 21:00 Mirtazapine (Remeron) 7.5 mg HS GTB Last administered on 06/29/17 22:54; Admin Dose 7.5 MG; Start 06/29/17 at 21:00 Zolpidem Tartrate (Ambien) 5 mg QHS PRN GTB SLEEP; Start 06/29/17 at 04:30 Docusate Sodium (Colace Liquid Cup) 100 mg DAILY GTB Last administered on 08:39; Admin Dose 100 MG; Start 06/29/17 at 09:00 Divalproex Sodium (Depakote Sprinkle) 250 mg TID GTB Last administered on 22:56; Admin Dose 250 MG; Start 06/29/17 at 09:00 Morphine Sulfate (morphine) 2 mg Q4 PRN IV severe pain Last administered on 12:15; Admin Dose 2 MG; Start 06/29/17 at 13:00 Lorazepam (Ativan) 0.5 mg Q4H PRN IV anxiety; Start 06/29/17 at 13:00 Acetaminophen/ Hydrocodone Bitart 1 tab 1 tab Q6H PRN PO pain; Start 06/29/17 at 09:30 Vancomycin HCl (Vancocin) 250 ml @ 125 mls/hr Q24H IVPB Last administered on 06/29/17 22:52; Admin Dose 125 MLS/HR; Start 06/29/17 at 22:00 Lansoprazole (Prevacid) 30 mg DAILY@06 GTB ; Start 06/30/17 at 06:00 TOYA BUCK MD Jun 29, 2017 23:51
[2017-06-30 01:24] VITALS: BP 103/52; RESP 18
[2017-06-30] MEDS: LORAZEPAM 1 MG TAB GTB SCH ×4 (05:17→22:39)
[2017-06-30] MEDS: LANSOPRAZOLE 30 MG CAP GTB SCH (05:17)
[2017-06-30] MEDS: LEVOTHYROXINE 50 MCG TAB GTB SCH (06:49)
[2017-06-30 08:00] VITALS: BP 106/53; RESP 17
[2017-06-30] MEDS: DIVALPROEX SPRINKLE 125 MG CAP GTB SCH ×3 (09:29→20:26)
[2017-06-30] MEDS: CEFEPIME 1GM/50 ML (PMX) 50 ML IVPB SCH (09:29)
[2017-06-30] MEDS: FOLIC ACID 1 MG TAB GTB SCH (09:29)
[2017-06-30] MEDS: DOCUSATE SODIUM 10 MG/ML (10ML CUP) GTB SCH (09:29)
[2017-06-30] MEDS: GABAPENTIN 100 MG CAP GTB SCH ×3 (09:29→20:26)
[2017-06-30] MEDS: RIVAROXABAN 10 MG TABLET PO SCH (09:29)
[2017-06-30] MEDS: CYANOCOBALAMIN 500 MCG TAB GTB SCH (09:29)
[2017-06-30] MEDS: LISINOPRIL 5 MG TAB GTB SCH (09:29)
[2017-06-30 14:00] VITALS: BP 130/60; RESP 16
--- NOTE | 2017-06-30 15:42 | CONS ---
Date/Time of Note Date/Time of Note DATE: 06/30/17 TIME: 15:32 Assessment/Plan Assessment/Plan Chief Complaint/Hosp Course ID PROGRESS NOTE CURRENT ABX: Day # 5=> Cefepime + Vanco 24H INTERVAL SUMMARY * Lethargic, VSS, no fevers, recent peg placement * CT: IMPRESSION:No evidence of urolithiasis, obstructive uropathy, diverticulitis or appendicitis. Diverticulosis.Hiatal hernia. Bibasilar atelectasis. * MICRO: URINE CULTURE Final Organism 1 PROTEUS MIRABILIS COLONY COUNT 50,000 - 60,000 CFU/ml PHYSICAL EXAMINATION: GENERAL: 86 yo F, lethargic, no fevers, VSS, NAD HEENT: Unremarkable NECK: Trach midline CHEST: Rise symmetrical, without dyspnea HEART: Pulse RRR ABDOMEN: Binder EXTREMITIES: Warm, ID ASSESSMENT 86 yo F w/PMHx dementia, dysphagia admit with: 1. Aspiration Pneumonitis 2. Urinary tract infection 06/28/17 URINE CULTURE Final Organism 1 PROTEUS MIRABILIS COLONY COUNT 50,000 - 60,000 CFU/ml 3. Hiatal hernia 4. Protein malnutrition w/ Failure to thrive + acute encephalopathy 6. Bilateral hip arthrosis 7. Osteoporosis INVASIVES: PIV ABX ALLERGY: Amoxicillin/Merrem CURRENT ABX: Day # 5=> Cefepime + Vanco IV ID RECOMMENDATIONS 1. DC ABX -> Patient has received 5 days coverage for low colony count UTI & CT without evidence full-blown PNA 2. May DC OFF ABX when cleared by primary . . . Problems: Consultation Date/Type/Reason Admit Date/Time Jun 26, 2017 at 21:46 Initial Consult Date Type of Consultation: ID Referring Provider: ANNE BERRIOS DO Exam/Review of Systems Vital Signs Vitals Vital Signs Date Time Temp Pulse Resp B/P Pulse Ox O2 Delivery O2 Flow Rate FiO2 06/30/17 14:00 98.7 90 16 130/60 99 06/30/17 08:20 Nasal Cannula 2.0 Intake and Output 06/29/17 06/29/17 06/30/17 15:00 23:00 07:00 Intake Total 300 ml 940 ml 250 ml Balance 300 ml 940 ml 250 ml Results Result Diagram: 06/30/17 0500 06/30/17 0529 Results 24 hrs Laboratory Tests Test 06/30/17 05:00 06/30/17 05:29 White Blood Count 6.4 Red Blood Count 3.75 L Hemoglobin 11.4 L Hematocrit 35.1 L Mean Corpuscular Volume 93.6 Mean Corpuscular Hemoglobin 30.4 Mean Corpuscular Hemoglobin Concent 32.5 Red Cell Distribution Width 12.7 Platelet Count 156 Mean Platelet Volume 10.5 H Neutrophils % 59.8 Lymphocytes % 27.8 Monocytes % 9.9 Eosinophils % 2.0 Basophils % 0.2 Nucleated Red Blood Cells % 0.0 Neutrophils # 3.8 Lymphocytes # 1.8 Monocytes # 0.6 Eosinophils # 0.1 Basophils # 0.0 Nucleated Red Blood Cells # 0.0 Sodium Level 142 Potassium Level 4.1 Chloride Level 106 Carbon Dioxide Level 33 H Anion Gap 7 L Blood Urea Nitrogen 11 Creatinine 0.58 Glucose Level 210 Calcium Level 9.2 Phosphorus Level 2.1 L Magnesium Level 1.8 Medications Medications Current Medications Ondansetron HCl (Zofran Inj) 4 mg Q6H PRN IV NAUSEA AND/OR VOMITING; Start 06/27/17 at 00:30 Rivaroxaban 10 mg 10 mg QAM PO Last administered on 06/30/17 09:29; Admin Dose 10 MG; Start 06/27/17 at 09:00; Status Future hold Cefepime HCl (Maxipime 1gm/50 ml (Pmx)) 50 ml @ 100 mls/hr Q12 IVPB Last administered on 06/30/17 09:29; Admin Dose 100 MLS/HR; Start 06/27/17 at 09:00 Cyanocobalamin (Vitamin B12) 1,000 mcg DAILY GTB Last administered on 09:29; Admin Dose 1,000 MCG; Start 06/29/17 at 09:00 Folic Acid (Folic Acid) 1 mg DAILY GTB Last administered on 06/30/17 09:29; Admin Dose 1 MG; Start 06/29/17 at 09:00 Gabapentin (Neurontin) 100 mg TID GTB Last administered on 06/30/17 13:35; Admin Dose 100 MG; Start 06/29/17 at 09:00 Al Hydrox/Mg Hydrox/Simethicone (Mag-Al Plus) 30 ml Q6H PRN GTB UPSET STOMACH; Start 06/29/17 at 04:30 Acetaminophen (Tylenol Tab) 650 mg Q6H PRN GTB MILD PAIN LEVEL 1-3; Start 06/29 at 04:24 Lisinopril (Zestril) 5 mg DAILY GTB Last administered on 06/30/17 09:29; Admin Dose 5 MG; Start 06/29/17 at 09:00 Magnesium Hydroxide (Milk Of Mag) 30 ml QHS GTB Last administered on 06/29/17 22:54; Admin Dose 30 ML; Start 06/29/17 at 21:00 Lorazepam (Ativan) 0.5 mg Q6H PRN GTB ANXIETY; Start 06/29/17 at 04:30 Lorazepam (Ativan) 1 mg Q6H GTB Last administered on 06/30/17 10:22; Admin Dose 1 MG; Start 06/29/17 at 04:30 Magnesium Oxide (Mag-Ox 400) 400 mg QHS GTB Last administered on 06/29/17 22: 53; Admin Dose 400 MG; Start 06/29/17 at 21:00 Mirtazapine (Remeron) 7.5 mg HS GTB Last administered on 06/29/17 22:54; Admin Dose 7.5 MG; Start 06/29/17 at 21:00 Zolpidem Tartrate (Ambien) 5 mg QHS PRN GTB SLEEP; Start 06/29/17 at 04:30 Docusate Sodium (Colace Liquid Cup) 100 mg DAILY GTB Last administered on 09:29; Admin Dose 100 MG; Start 06/29/17 at 09:00 Divalproex Sodium (Depakote Sprinkle) 250 mg TID GTB Last administered on 13:35; Admin Dose 250 MG; Start 06/29/17 at 09:00 Morphine Sulfate (morphine) 2 mg Q4 PRN IV severe pain Last administered on 12:15; Admin Dose 2 MG; Start 06/29/17 at 13:00 Lorazepam (Ativan) 0.5 mg Q4H PRN IV anxiety; Start 06/29/17 at 13:00 Acetaminophen/ Hydrocodone Bitart 1 tab 1 tab Q6H PRN PO pain; Start 06/29/17 at 09:30 Vancomycin HCl (Vancocin) 250 ml @ 125 mls/hr Q24H IVPB Last administered on 06/29/17 22:52; Admin Dose 125 MLS/HR; Start 06/29/17 at 22:00 Lansoprazole (Prevacid) 30 mg DAILY@06 GTB Last administered on 06/30/17 05:17 ; Admin Dose 30 MG; Start 06/30/17 at 06:00 Miscellaneous Information (*Rx Drug Level Order Reminder*) VANCOMYCIN TROUGH AT 2100 ONCE ONCE XX ; Start 06/30/17 at 21:00; Stop 06/30/17 at 21:01 FREDY HEML NP Jun 30, 2017 15:42
--- NOTE | 2017-06-30 15:42 | PN ---
DATE: 06/30/2017 SUBJECTIVE: The patient is stable, currently not agitated. No other events noted. Patient tolerat ing tube feeding well. OBJECTIVE: VITAL SIGNS: Blood pressure 106/53, respiration 17, pulse 100, temperature 98.4. HEENT: Head is normocephalic. NECK: Supple. HEART: Regular rate. LUNGS: Show diminished breath sounds at base. ABDOMEN: Soft, nontender to palpation. No rebound or guarding. EXTREMITIES: Negative for clubbing, cyanosis, no edema. DERMATOLOGIC: No rashes. MUSCULOSKELETAL: No joint effusions. NEUROLOGIC: No change in exam. MEDICATIONS: Have been reviewed. LABORATORY DATA: Has been reviewed. IMAGING: The patient's CT scan of abdomen and pelvis shows positive hiatal hernia, bibasilar atelec tasis. No other acute findings. Hip x-ray shows bilateral hip arthrosis, osteoporosis, no evidence of acute fracture. ASSESSMENT AND PLAN: 1. Pneumonia urinary tract infection. Continue antibiotic regimen. 2. Acute encephalopathy and dementia. Etiology is likely toxic metabolic. The patient's mental st atus may be approaching previous baseline. 3. Nonoliguric acute kidney injury with unknown baseline creatinine. Etiology secondary to hemodyn amics. Renal function has improved. 4. Anemia. Monitor hemoglobin and hematocrit levels. 5. Dysphagia, status post PEG, continue tube feeding. 6. Hypertension. Continue current blood pressure regimen. 7. Hypothyroidism. Continue Synthroid. 8. Neuropathy. Continue Neurontin. 9. Deep venous thrombosis. Continue Xarelto. 10. Hypomagnesemia. Continue to monitor. 11. Gastrointestinal and deep venous thrombosis prophylaxis. DISPOSITION: Anticipate discharge planning to SNF. Dictated By: ANNE CORNEJO/JOHN Conf#: [id number] DID#: [id number]
--- NOTE | 2017-06-30 18:28 | CONS ---
Date/Time of Note Date/Time of Note DATE: 06/30/17 TIME: 18:27 Assessment/Plan Assessment/Plan Chief Complaint/Hosp Course ASSESSMENT AND PLAN: This is an 86-year-old female who presents with: Hypercoagulable state with hx deep venous thrombosis and bedridden state and HX PAF in the past The patient is on Xarelto. \ We will continue. 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 Nonoliguric acute kidney injury Hypernatremia, Dysphagia status post G-tube in the past, now needs new one Acute encephalopathy on dementia. Etiology is toxic metabolic. Hypertension. Hypothyroidism. Continue Synthroid. Neuropathy. Continue Neurontin. Gastrointestinal and deep venous thrombosis prophylaxis. Continue proton pump inhibitor and Xarelto. Problems: Consultation Date/Type/Reason Admit Date/Time Jun 26, 2017 at 21:46 Initial Consult Date 06.26.17 [facility] Referring Provider: ANNE BERRIOS DO 24 HR Interval Summary Free Text/Dictation ALL NOTED NO BLEEDING NO HEMOLYSIS Exam/Review of Systems Vital Signs Vitals Vital Signs Date Time Temp Pulse Resp B/P Pulse Ox O2 Delivery O2 Flow Rate FiO2 06/30/17 14:00 98.7 90 16 130/60 99 06/30/17 08:20 Nasal Cannula 2.0 Intake and Output 06/29/17 06/29/17 06/30/17 15:00 23:00 07:00 Intake Total 300 ml 940 ml 250 ml Balance 300 ml 940 ml 250 ml Exam HEENT: Head is normocephalic. NECK: Supple. HEART: Regular rate. LUNGS: Show diminished breath sounds at the base. ABDOMEN: Nontender to palpation. No rebound or guarding. EXTREMITIES: Negative for clubbing, cyanosis, no edema. DERMATOLOGIC: No rashes. MUSCULOSKELETAL: No joint effusions. NEUROLOGIC: No change in exam. Results Result Diagram: 06/30/17 0500 06/30/17 0529 Results 24 hrs Laboratory Tests Test 06/30/17 05:00 06/30/17 05:29 White Blood Count 6.4 Red Blood Count 3.75 L Hemoglobin 11.4 L Hematocrit 35.1 L Mean Corpuscular Volume 93.6 Mean Corpuscular Hemoglobin 30.4 Mean Corpuscular Hemoglobin Concent 32.5 Red Cell Distribution Width 12.7 Platelet Count 156 Mean Platelet Volume 10.5 H Neutrophils % 59.8 Lymphocytes % 27.8 Monocytes % 9.9 Eosinophils % 2.0 Basophils % 0.2 Nucleated Red Blood Cells % 0.0 Neutrophils # 3.8 Lymphocytes # 1.8 Monocytes # 0.6 Eosinophils # 0.1 Basophils # 0.0 Nucleated Red Blood Cells # 0.0 Sodium Level 142 Potassium Level 4.1 Chloride Level 106 Carbon Dioxide Level 33 H Anion Gap 7 L Blood Urea Nitrogen 11 Creatinine 0.58 Glucose Level 210 Calcium Level 9.2 Phosphorus Level 2.1 L Magnesium Level 1.8 Medications Medications Current Medications Ondansetron HCl (Zofran Inj) 4 mg Q6H PRN IV NAUSEA AND/OR VOMITING; Start 06/27/17 at 00:30 Rivaroxaban (Xarelto) 10 mg QAM PO Last administered on 06/30/17 09:29; Admin Dose 10 MG; Start 06/27/17 at 09:00; Status Future hold Cyanocobalamin (Vitamin B12) 1,000 mcg DAILY GTB Last administered on 09:29; Admin Dose 1,000 MCG; Start 06/29/17 at 09:00 Folic Acid (Folic Acid) 1 mg DAILY GTB Last administered on 06/30/17 09:29; Admin Dose 1 MG; Start 06/29/17 at 09:00 Gabapentin (Neurontin) 100 mg TID GTB Last administered on 06/30/17 13:35; Admin Dose 100 MG; Start 06/29/17 at 09:00 Al Hydrox/Mg Hydrox/Simethicone (Mag-Al Plus) 30 ml Q6H PRN GTB UPSET STOMACH; Start 06/29/17 at 04:30 Acetaminophen (Tylenol Tab) 650 mg Q6H PRN GTB MILD PAIN LEVEL 1-3; Start 06/29 at 04:24 Lisinopril (Zestril) 5 mg DAILY GTB Last administered on 06/30/17 09:29; Admin Dose 5 MG; Start 06/29/17 at 09:00 Magnesium Hydroxide (Milk Of Mag) 30 ml QHS GTB Last administered on 06/29/17 22:54; Admin Dose 30 ML; Start 06/29/17 at 21:00 Lorazepam (Ativan) 0.5 mg Q6H PRN GTB ANXIETY; Start 06/29/17 at 04:30 Lorazepam (Ativan) 1 mg Q6H GTB Last administered on 06/30/17 10:22; Admin Dose 1 MG; Start 06/29/17 at 04:30 Magnesium Oxide (Mag-Ox 400) 400 mg QHS GTB Last administered on 06/29/17 22: 53; Admin Dose 400 MG; Start 06/29/17 at 21:00 Mirtazapine (Remeron) 7.5 mg HS GTB Last administered on 06/29/17 22:54; Admin Dose 7.5 MG; Start 06/29/17 at 21:00 Zolpidem Tartrate (Ambien) 5 mg QHS PRN GTB SLEEP; Start 06/29/17 at 04:30 Docusate Sodium (Colace Liquid Cup) 100 mg DAILY GTB Last administered on 09:29; Admin Dose 100 MG; Start 06/29/17 at 09:00 Divalproex Sodium (Depakote Sprinkle) 250 mg TID GTB Last administered on 13:35; Admin Dose 250 MG; Start 06/29/17 at 09:00 Morphine Sulfate (morphine) 2 mg Q4 PRN IV severe pain Last administered on 12:15; Admin Dose 2 MG; Start 06/29/17 at 13:00 Lorazepam (Ativan) 0.5 mg Q4H PRN IV anxiety; Start 06/29/17 at 13:00 Acetaminophen/ Hydrocodone Bitart ([place] (5/325)) 1 tab Q6H PRN PO pain; Start 06/29/17 at 09:30 Lansoprazole (Prevacid) 30 mg DAILY@06 GTB Last administered on 06/30/17 05:17 ; Admin Dose 30 MG; Start 06/30/17 at 06:00 TOYA BUCK MD Jun 30, 2017 18:28
[2017-06-30] MEDS: MAGNESIUM OXIDE 400 MG TAB GTB SCH (20:26)
[2017-06-30] MEDS: MIRTAZAPINE 15 MG TAB GTB SCH (20:26)
[2017-06-30] MEDS: MAGNESIUM HYDROXIDE 30ML CUP GTB SCH (20:26)
[2017-06-30 20:45] VITALS: BP 127/59; RESP 18
[2017-07-01 02:12] VITALS: BP 112/56; RESP 21
[2017-07-01] MEDS: LORAZEPAM 1 MG TAB GTB SCH ×2 (04:34→10:44)
[2017-07-01] MEDS: LANSOPRAZOLE 30 MG CAP GTB SCH (06:22)
[2017-07-01] MEDS: LEVOTHYROXINE 50 MCG TAB GTB SCH (06:22)
[2017-07-01 07:55] VITALS: BP 109/52; RESP 20
[2017-07-01] MEDS: DOCUSATE SODIUM 10 MG/ML (10ML CUP) GTB SCH (08:23)
[2017-07-01] MEDS: DIVALPROEX SPRINKLE 125 MG CAP GTB SCH ×2 (08:24→13:20)
[2017-07-01] MEDS: GABAPENTIN 100 MG CAP GTB SCH ×2 (08:24→13:20)
[2017-07-01] MEDS: CYANOCOBALAMIN 500 MCG TAB GTB SCH (08:24)
[2017-07-01] MEDS: RIVAROXABAN 10 MG TABLET PO SCH (08:26)
[2017-07-01] MEDS: FOLIC ACID 1 MG TAB GTB SCH (08:26)
[2017-07-01] MEDS: LISINOPRIL 5 MG TAB GTB SCH (08:27)
--- NOTE | 2017-07-01 11:19 | DS ---
DATE OF ADMISSION: 06/26/2017 DATE OF DISCHARGE: 07/01/2017 HOSPITAL COURSE: This is an 86-year-old male with a past medical history of dementia, dysphagia, st atus post PEG, history of hypertension, hypothyroidism who presented to [facility] after G-tube dislodgement. The patient was admitted to med/surg for replacement of her G-tube. Up on admission, the patient was noted to have pneumonia and UTI. She was started on antibiotics in e Emergency Room. The patient was seen by infectious disease and has completed a 6-day course of IV antibiotics. Per infectious disease, no further antibiotics are needed. The patient also, on admi ssion, noted to have nonoliguric acute kidney injury and hypernatremia due to dehydration and volume depletion which resolved with IV hydration. The patient was also seen by Dr. Cabezas, gastroenterol ogist and had her G-tube replace. Patient was then placed on tube feeding and has been tolerating t ube feeding well. The patient during the hospital course also had episode of encephalopathy and jacki tation which has improved after patient was resumed on medications. Currently, at this time, the pa huong is stable, in no acute distress. He will be discharged back to a senior living facility. FINAL DIAGNOSES: 1. Pneumonia/urinary tract infection. The patient is status post antibiotic therapy. 2. Nonoliguric acute kidney injury, resolved. 3. Hyponatremia, resolved. 4. Dysphagia, status post G-tube placement. 5. Acute encephalopathy and dementia. 6. Hypertension. 7. Hypothyroidism. 8. Neuropathy. 9. Debility. FINAL MEDICATIONS: See reconciliation list. At the time of discharge, the patient is stable, in no acute distress. Please note I spent over 30 minutes of time preparing the patient's discharge. Dictated By: ANNE CORNEJO/JOHN Conf#: [id number] DID#: [id number]
--- NOTE | 2017-07-01 11:19 | DS ---
DATE OF ADMISSION: 06/26/2017 DATE OF DISCHARGE: 07/01/2017 HOSPITAL COURSE: This is an 86-year-old male with a past medical history of dementia, dysphagia, st atus post PEG, history of hypertension, hypothyroidism who presented to [facility] after G-tube dislodgement. The patient was admitted to med/surg for replacement of her G-tube. Up on admission, the patient was noted to have pneumonia and UTI. She was started on antibiotics in e Emergency Room. The patient was seen by infectious disease and has completed a 6-day course of IV antibiotics. Per infectious disease, no further antibiotics are needed. The patient also, on admi ssion, noted to have nonoliguric acute kidney injury and hypernatremia due to dehydration and volume depletion which resolved with IV hydration. The patient was also seen by Dr. Cabezas, gastroenterol ogist and had her G-tube replace. Patient was then placed on tube feeding and has been tolerating t ube feeding well. The patient during the hospital course also had episode of encephalopathy and jacki tation which has improved after patient was resumed on medications. Currently, at this time, the pa huong is stable, in no acute distress. He will be discharged back to a senior care facility. FINAL DIAGNOSES: 1. Pneumonia/urinary tract infection. The patient is status post antibiotic therapy. 2. Nonoliguric acute kidney injury, resolved. 3. Hyponatremia, resolved. 4. Dysphagia, status post G-tube placement. 5. Acute encephalopathy and dementia. 6. Hypertension. 7. Hypothyroidism. 8. Neuropathy. 9. Debility. FINAL MEDICATIONS: See reconciliation list. At the time of discharge, the patient is stable, in no acute distress. Please note I spent over 30 minutes of time preparing the patient's discharge. Dictated By: ANNE CORNEJO/JOHN Conf#: [id number] DID#: [id number]
--- NOTE | 2017-07-01 11:19 | DS ---
DATE OF ADMISSION: 06/26/2017 DATE OF DISCHARGE: 07/01/2017 HOSPITAL COURSE: This is an 86-year-old male with a past medical history of dementia, dysphagia, st atus post PEG, history of hypertension, hypothyroidism who presented to [facility] after G-tube dislodgement. The patient was admitted to med/surg for replacement of her G-tube. Up on admission, the patient was noted to have pneumonia and UTI. She was started on antibiotics in e Emergency Room. The patient was seen by infectious disease and has completed a 6-day course of IV antibiotics. Per infectious disease, no further antibiotics are needed. The patient also, on admi ssion, noted to have nonoliguric acute kidney injury and hypernatremia due to dehydration and volume depletion which resolved with IV hydration. The patient was also seen by Dr. Cabezas, gastroenterol ogist and had her G-tube replace. Patient was then placed on tube feeding and has been tolerating t ube feeding well. The patient during the hospital course also had episode of encephalopathy and jacki tation which has improved after patient was resumed on medications. Currently, at this time, the pa huong is stable, in no acute distress. He will be discharged back to a [facility] facility. FINAL DIAGNOSES: 1. Pneumonia/urinary tract infection. The patient is status post antibiotic therapy. 2. Nonoliguric acute kidney injury, resolved. 3. Hyponatremia, resolved. 4. Dysphagia, status post G-tube placement. 5. Acute encephalopathy and dementia. 6. Hypertension. 7. Hypothyroidism. 8. Neuropathy. 9. Debility. FINAL MEDICATIONS: See reconciliation list. At the time of discharge, the patient is stable, in no acute distress. Please note I spent over 30 minutes of time preparing the patient's discharge. Dictated By: ANNE CORNEJO/JOHN Conf#: [id number] DID#: [id number]
--- NOTE | 2017-07-01 13:09 | CONS ---
Date/Time of Note Date/Time of Note DATE: 07/01/17 TIME: 13:08 Consult Date/Type/Reason Admit Date/Time Jun 26, 2017 at 21:46 Initial Consult Date Type of Consultation: ID Ordering Provider: ANNE BERRIOS DO Objective Vital Signs Date Time Temp Pulse Resp B/P Pulse Ox O2 Delivery O2 Flow Rate FiO2 07/01/17 07:55 98.8 99 20 109/52 98 06/30/17 20:00 Nasal Cannula 2.0 Intake and Output 06/30/17 06/30/17 07/01/17 15:00 23:00 07:00 Intake Total 50 ml 740 ml 910 ml Balance 50 ml 740 ml 910 ml Results/Medications Result Diagram: 06/30/17 0500 06/30/17 0529 Medications Current Medications Ondansetron HCl (Zofran Inj) 4 mg Q6H PRN IV NAUSEA AND/OR VOMITING; Start 06/27/17 at 00:30 Rivaroxaban (Xarelto) 10 mg QAM PO Last administered on 07/01/17 08:26; Admin Dose 10 MG; Start 06/27/17 at 09:00; Status Future hold Cyanocobalamin (Vitamin B12) 1,000 mcg DAILY GTB Last administered on 08:24; Admin Dose 1,000 MCG; Start 06/29/17 at 09:00 Folic Acid (Folic Acid) 1 mg DAILY GTB Last administered on 07/01/17 08:26; Admin Dose 1 MG; Start 06/29/17 at 09:00 Gabapentin (Neurontin) 100 mg TID GTB Last administered on 07/01/17 08:24; Admin Dose 100 MG; Start 06/29/17 at 09:00 Al Hydrox/Mg Hydrox/Simethicone (Mag-Al Plus) 30 ml Q6H PRN GTB UPSET STOMACH; Start 06/29/17 at 04:30 Acetaminophen (Tylenol Tab) 650 mg Q6H PRN GTB MILD PAIN LEVEL 1-3; Start 06/29 at 04:24 Lisinopril (Zestril) 5 mg DAILY GTB Last administered on 07/01/17 08:27; Admin Dose 5 MG; Start 06/29/17 at 09:00 Magnesium Hydroxide (Milk Of Mag) 30 ml QHS GTB Last administered on 06/30/17 20:26; Admin Dose 30 ML; Start 06/29/17 at 21:00 Lorazepam (Ativan) 0.5 mg Q6H PRN GTB ANXIETY; Start 06/29/17 at 04:30 Lorazepam (Ativan) 1 mg Q6H GTB Last administered on 07/01/17 10:44; Admin Dose 1 MG; Start 06/29/17 at 04:30 Magnesium Oxide (Mag-Ox 400) 400 mg QHS GTB Last administered on 06/30/17 20: 26; Admin Dose 400 MG; Start 06/29/17 at 21:00 Mirtazapine (Remeron) 7.5 mg HS GTB Last administered on 06/30/17 20:26; Admin Dose 7.5 MG; Start 06/29/17 at 21:00 Zolpidem Tartrate (Ambien) 5 mg QHS PRN GTB SLEEP; Start 06/29/17 at 04:30 Docusate Sodium (Colace Liquid Cup) 100 mg DAILY GTB Last administered on 08:23; Admin Dose 100 MG; Start 06/29/17 at 09:00 Divalproex Sodium (Depakote Sprinkle) 250 mg TID GTB Last administered on 08:24; Admin Dose 250 MG; Start 06/29/17 at 09:00 Morphine Sulfate (morphine) 2 mg Q4 PRN IV severe pain Last administered on 12:15; Admin Dose 2 MG; Start 06/29/17 at 13:00 Lorazepam (Ativan) 0.5 mg Q4H PRN IV anxiety; Start 06/29/17 at 13:00 Acetaminophen/ Hydrocodone Bitart ([place] (5/325)) 1 tab Q6H PRN PO pain Last administered on 07/01/17 08:35; Admin Dose 1 TAB; Start 06/29/17 at 09:30 Lansoprazole (Prevacid) 30 mg DAILY@06 GTB Last administered on 07/01/17 06:22 ; Admin Dose 30 MG; Start 06/30/17 at 06:00 Assessment/Plan Chief Complaint/Hosp Course SUBJECTIVE: Lethargic, looks comfortable, afebrile. ALLERGIES: 1. AMPICILLIN. 2. MEROPENEM. IMAGING: Chest x-ray on admission revealed mild left basilar pneumonia. PHYSICAL EXAMINATION: GENERAL: Fragile, chronically ill-appearing, elderly woman in no distress. HEENT: Head atraumatic, normocephalic. Sclerae anicteric. Buccal mucosa dry. NECK: Supple. CHEST: Rise symmetrical. LUNGS: Breath sounds diminished to bases. ASSESSMENT: 1. S/p Pneumonia and UTI. 3. Acute encephalopathy. 4. Dementia. 5. Failure to thrive, s/p PEG. PLAN: The patient remains stable. Completed abx, pending dc to SNF staff Problems: SPARKLE DAY NP Jul 01, 2017 13:09
[2017-07-01 14:00] VITALS: BP 102/48; RESP 20
--- NOTE | 2017-07-01 22:39 | CONS ---
Date/Time of Note Date/Time of Note DATE: 07/01/17 TIME: 09:39 vk le Assessment/Plan Assessment/Plan Chief Complaint/Hosp Course ASSESSMENT AND PLAN: This is an 86-year-old female who presents with: Hypercoagulable state with hx deep venous thrombosis and bedridden state and HX PAF in the past The patient is on Xarelto. \ We will continue. 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 Nonoliguric acute kidney injury Hypernatremia, Dysphagia status post G-tube in the past, now needs new one Acute encephalopathy on dementia. Etiology is toxic metabolic. Hypertension. Hypothyroidism. Continue Synthroid. Neuropathy. Continue Neurontin. Gastrointestinal and deep venous thrombosis prophylaxis. Continue proton pump inhibitor and Xarelto. Problems: Consultation Date/Type/Reason Admit Date/Time Jun 26, 2017 at 21:46 Initial Consult Date 06.26.17 [facility] Referring Provider: ANNE BERRIOS DO 24 HR Interval Summary Free Text/Dictation ALL NOTED Exam/Review of Systems Vital Signs Vitals Vital Signs Date Time Temp Pulse Resp B/P Pulse Ox O2 Delivery O2 Flow Rate FiO2 07/01/17 14:00 97.8 77 20 102/48 100 07/01/17 08:00 Nasal Cannula 2.0 Intake and Output 06/30/17 06/30/17 07/01/17 15:00 23:00 07:00 Intake Total 50 ml 740 ml 910 ml Balance 50 ml 740 ml 910 ml Exam HEENT: Head is normocephalic. NECK: Supple. HEART: Regular rate. LUNGS: Show diminished breath sounds at the base. ABDOMEN: Nontender to palpation. No rebound or guarding. EXTREMITIES: Negative for clubbing, cyanosis, no edema. DERMATOLOGIC: No rashes. MUSCULOSKELETAL: No joint effusions. NEUROLOGIC: No change in exam. Results Result Diagram: 06/30/17 0500 06/30/17 0529 TOYA BUCK MD Jul 01, 2017 22:39
== END 2017-07-01 15:25 | DRG 393 ==
LOC: E/R 19:33 → PP2 21:46
PROVIDERS: ADMIT Internal Medicine; ATTEND Internal Medicine
PROC: 0DJ08ZZ Inspection of Upper Intestinal Tract, Via Natural or Artificial Opening Endoscopic (ICD-10-PCS; 2017-06-28)
PROC: 0DH63UZ Insertion of Feeding Device into Stomach, Percutaneous Approach (ICD-10-PCS; principal; 2017-06-28 12:30)
DX: K94.23 Gastrostomy malfunction (principal); J18.9 Pneumonia, unspecified organism; G92 Toxic encephalopathy; N17.9 Acute kidney failure, unspecified; E46 Unspecified protein-calorie malnutrition; E87.0 Hyperosmolality and hypernatremia; D68.59 Other primary thrombophilia; N39.0 Urinary tract infection, site not specified; R13.10 Dysphagia, unspecified; E86.0 Dehydration; F03.90 Unspecified dementia, unspecified severity, without behavioral disturbance, psychotic disturbance, mood disturbance, and anxiety; Y83.3 Surgical operation with formation of external stoma as the cause of abnormal reaction of the patient, or of later complication, without mention of misadventure at the time of the procedure; Y92.129 Unspecified place in nursing home as the place of occurrence of the external cause; R62.7 Adult failure to thrive; E03.9 Hypothyroidism, unspecified; I10 Essential (primary) hypertension; G62.9 Polyneuropathy, unspecified; D64.9 Anemia, unspecified; E83.42 Hypomagnesemia; I48.0 Paroxysmal atrial fibrillation; M81.0 Age-related osteoporosis without current pathological fracture; M16.0 Bilateral primary osteoarthritis of hip; K44.9 Diaphragmatic hernia without obstruction or gangrene; B96.4 Proteus (mirabilis) (morganii) as the cause of diseases classified elsewhere; Z79.01 Long term (current) use of anticoagulants; Z86.718 Personal history of other venous thrombosis and embolism
CPT/HCPCS: 36415; 71010; 73520; 74176; 80048; 80053; 81001; 83605; 83735; 84100; 85025; 85610; 85730; 87040; 87081; 87086; 90686; 92526; 92610; 93005; 96374; 96375; C9113; J0692; J0744; J1650; J2060; J2270; J3370; J3475; J7030; J7042; J7050; J7070; P9612